=== PATIENT | female | born 1940 | race Caucasian/White ===

== ENCOUNTER → 2016-06-08 | Day surgery (SDC) | payer MEDICARE, OTHER ==
[~2016-06-08] VITALS: Ht 147.3 cm; Wt 69.4 kg
[~2016-06-08] MED LIST: ASPI-611 PO; CALC-603 PO; CYCL-375 PO; FLUO-88 PO; FURO20TA4 PO; HYDR-4072 PO; HYDR-4180 PO; LIDOCAINE 1% (10mg/ml) 2ml SDV INJ ONE; LIDOCAINE 1% (10mg/ml) 2ml SDV ONE; LIDOCAINE VISCOUS 2% Oral Soln 15ml UD ONE; LR 1,000 ML IV SCH; METO100T5 PO; MULT-684 PO; OMEP40CA52 PO; POTA20TA10 PO; PROPOFOL 500mg 50 ML IV ONE; RIVA20TA PO; VALS80TA26 PO
--- OUTSIDE RECORDS SUMMARY | 2016-06-08 08:18 | XMS REPORT | Referral Summary ---
Author Author [facility], Family [facility] Organization [facility] Address Unknown Phone Unavailable Care Team Providers Care Hospice Clinical Marketer Name Role Phone Kane Harley Primary Care Physician [phone] Encounter VC Date(s): 03/23/16 - 03/23/16 [facility], [address] [place] [address]- Discharge Diagnosis: Viral URI Discharge Diagnosis: Acute wheezy bronchitis Discharge Diagnosis: Cough Discharge Disposition: 01-Home or Self Care Attending Physician: Pierre Sanchez MD Admitting Physician: Pierre Sanchez MD Vital Signs Most recent to 1 oldest [Reference Range]: Peripheral Pulse 66 bpm Rate [60-100 bpm] (03/23/16 1:14 PM) Blood Pressure 142/72 mmHg [90-140/60-90 mmHg] *HI* (03/23/16 1:14 PM) SpO2 96 % (03/23/16 1:14 PM) Problem List Condition Effective Dates Status Health Status Informant Acute DVT (deep Active venous thrombosis)(Confirme d) Anemia Active (disorder)(Confirmed ) Anemia- Resolved pernicious(Confirmed ) Angina(Confirmed) Resolved Arthritis(Confirmed) Active Asthma(Confirmed) Resolved Benign essential Active hypertension (disorder)(Confirmed ) Cataract(Confirmed) Resolved Chronic pain Active syndrome(Confirmed) Degenerative disk Resolved disease - cervical(Confirmed) Depression(Confirmed Active ) DVT (deep venous 06/08/11 Resolved thrombosis) - and PE(Confirmed) Fistula, Resolved tracheoesophageal, stenosis(Confirmed) GERD Active (gastroesophageal reflux disease)(Confirmed) Personal history of Active DVT (deep vein thrombosis)(Confirme d) History of gastric Active ulcer(Confirmed) Hematuria syndrome Active (disorder)(Confirmed ) Hyperlipidemia(Confi Resolved rmed) Hypertension(Confirm Resolved ed) Insomnia(Confirmed) Resolved Obesity(Confirmed) Active patient Degenerative joint Active disease(Confirmed) Overweight(Confirmed Resolved ) Pedal Resolved edema(Confirmed) Pure Active hyperglyceridemia (disorder)(Confirmed ) Rheumatoid 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) Tobacco Resolved patient user(Confirmed) Ulcer(Confirmed) Resolved Allergies, Adverse Reactions, Alerts Substance Reaction Severity Status cyclobenzaprine hallucinaations Active sulfanilamide topical Hives/Skin Rash Active Medications albuterol CFC free 90 mcg/inh inhalation aerosol 2 puffs, Inhalation, q4hr, as needed for wheezing, # 8.5 g, 0 Refill(s), Pharmacy: [facility] #[id number] Start Date: 03/23/16 Status: Ordered Aspirin Low Dose 81 mg, Oral, Daily, 0 Refill(s) Start Date: 09/07/13 Status: Ordered Calcium 600+D 1 tabs, Oral, BID, 0 Refill(s) Start Date: 09/07/13 Status: Ordered FLUoxetine 20 mg oral capsule See Instructions, TAKE ONE CAPSULE BY MOUTH DAILY, # 90 caps, eRx: [facility] #[id number], TAKE ONE CAPSULE BY MOUTH DAILY Start Date: 02/02/16 Status: Ordered furosemide 20 mg oral tablet See Instructions, TAKE ONE TABLET BY MOUTH DAILY, # 60 tabs, 3 Refill(s), eRx: [facility] #[id number], TAKE ONE TABLET BY MOUTH DAILY Start Date: 09/13/15 Status: Ordered hydrALAZINE 25 mg oral tablet See Instructions, TAKE ONE TABLET BY MOUTH THREE TIMES A DAY, # 90 tabs, 1 Refill(s), eRx: [facility] #[id number] Start Date: 03/20/16 Status: Ordered HYDROcodone-acetaminophen 7.5 mg-325 mg oral tablet 1 tabs, Oral, TID, as needed for pain, # 90 tabs, 0 Refill(s) Start Date: 02/02/16 Stop Date: 03/03/16 Status: Ordered Klor-Con M20 oral tablet, extended release See Instructions, TAKE ONE TABLET BY MOUTH EVERY OTHER DAY, # 30 tabs, 3 Refill( s), eRx: [facility] #[id number], TAKE ONE TABLET BY MOUTH EVERY OTHER DAY Start Date: 10/18/15 Status: Ordered Metoprolol Tartrate 100 mg oral tablet See Instructions, TAKE ONE TABLET BY MOUTH TWICE A DAY, # 180 tabs, 3 Refill(s) , eRx: [facility] #[id number], TAKE ONE TABLET BY MOUTH TWICE A DAY Start Date: 07/19/15 Status: Ordered multivitamin Daily, 0 Refill(s) Start Date: 02/07/16 Status: Ordered omeprazole 40 mg oral delayed release capsule See Instructions, TAKE ONE CAPSULE BY MOUTH DAILY, # 30 caps, 4 Refill(s), Pharmacy: [facility] #[id number], TAKE ONE CAPSULE BY MOUTH DAILY Start Date: 03/22/16 Status: Ordered Tessalon Perles 100 mg oral capsule 100 mg 1 caps, Oral, TID, X 10 days, # 30 caps, 0 Refill(s), Pharmacy: [facility] #[id number], 1 caps Oral TID,x10 days Start Date: 03/23/16 Stop Date: 04/02/16 Status: Ordered valsartan 80 mg oral tablet See Instructions, TAKE ONE TABLET BY MOUTH DAILY, # 90 tabs, eRx: [facility] #[id number], TAKE ONE TABLET BY MOUTH DAILY Start Date: 02/20/16 Status: Ordered Xarelto 20 mg oral tablet See Instructions, TAKE ONE TABLET BY MOUTH EVERY EVENING, # 30 tabs, 5 Refill(s) , eRx: [facility] #[id number], TAKE ONE TABLET BY MOUTH EVERY EVENING Start Date: 11/14/15 Status: Ordered Results No data available for this section Immunizations Given and Recorded Vaccine Date Status Refusal Reason tetanus/diphth/pertuss (Tdap) adult/adol 07/09/14 Given influenza virus vaccine, inactivated 02/04/16 Recorded influenza virus vaccine, inactivated 02/24/15 Given influenza virus vaccine, live 05/04/13 Given Procedures Procedure Date Related Diagnosis Body Site Ambulatory Phlebectomy Left Leg 03/26/14 EVLT Left GSV 03/12/14 EVLT Left SSV 03/12/14 Colonoscopy and biopsy of colon1 09/17/13 Esophagogastroduodenoscopy and biopsy2 09/17/13 Cystoscopy 08/04/12 Mammogram 02/23/10 Esophagogastroduodenoscopy and dilation of 12/23/08 esophageal stricture3, 4 Cardiac catheterization5 2009 Knee replacement - right 2009 Bone densimetry normal 01/06/08 Cardiac catheterization6 2003 Vaginal Pap smear 01/29/02 Blood transfusion 1999 Adenoidectomy ILENE - Total abdominal hysterectomy Tonsillectomy 1Random biopsies, no evidence of colitis, repeat in 5 years due to family history of first-degree relative with colon cancer 2No evidence of Guzman's or malignancy, staying on PPI and follow-up as needed 3Schatzki's ring, gastritis 4Chronic gastritis, reflux esophagitis, H. pylori, esophageal strictures at 15 cm from incisions, distal esophagus/Schatzski ring 5Negative 6Negative Social History Social History Type Response Smoking Status Former smoker; Type: Cigarettes Assessment and Plan No data available for this section
--- OUTSIDE RECORDS SUMMARY | 2016-06-08 08:18 | XMS REPORT | Referral Summary ---
Author Author [facility], [facility] Organization [facility] Address Unknown Phone Unavailable Care Team Providers Care Mobile Security Architect Name Role Phone Kane Harley Primary Care Physician [phone] Encounter VC Date(s): 05/26/15 - 05/26/15 [facility], [address] [place] [address]- Discharge Diagnosis: Hypertension Discharge Diagnosis: Arthritis Discharge Diagnosis: Anemia (disorder) Discharge Disposition: 01-Home or Self Care Attending Physician: Danna Harley DO Admitting Physician: Danna Harley DO Vital Signs Most recent to 1 oldest [Reference Range]: Temperature Tympanic 36.9 degC [36.6-38.1 degC] (05/26/15 7:39 AM) Peripheral Pulse 66 bpm Rate [60-100 bpm] (05/26/15 7:39 AM) Respiratory Rate 17 br/min [14-20 br/min] (05/26/15 7:39 AM) Blood Pressure 128/60 mmHg [90-140/60-90 mmHg] (05/26/15 7:39 AM) SpO2 98 % (05/26/15 7:39 AM) Problem List Condition Effective Dates Status Health Status Informant Acute DVT (deep Active venous thrombosis)(Confirme d) Anemia Active (disorder)(Confirmed ) Anemia- Resolved pernicious(Confirmed ) Angina(Confirmed) Resolved Arthritis(Confirmed) Active Asthma(Confirmed) Resolved Benign essential Active hypertension (disorder)(Confirmed ) Cataract(Confirmed) Resolved Degenerative disk Resolved disease - cervical(Confirmed) Depression(Confirmed [...] Active sulfanilamide topical Hives/Skin Rash Active Medications Aspirin Low Dose 81 mg, Oral, Daily, 0 Refill(s) Start Date: 09/07/13 Status: Ordered Calcium 600+D 1 tabs, Oral, BID, 0 Refill(s) Start Date: 09/07/13 Status: Ordered Diovan 80 mg oral tablet 80 mg 1 tabs, Oral, Daily, # 90 tabs, 1 Refill(s), Pharmacy: [facility] # [id number], 1 tabs Oral Daily,x90 days Start Date: 05/19/15 Stop Date: 11/15/15 Status: Ordered furosemide 20 mg oral tablet 20 mg 1 tabs, Oral, Daily, # 60 tabs, 2 Refill(s), Pharmacy: [facility] # [id number], 1 tabs Oral Daily Start Date: 05/10/15 Status: Ordered hydrALAZINE 25 mg oral tablet See Instructions, TAKE ONE TABLET BY MOUTH THREE TIMES A DAY, # 90 tabs, 1 Refill(s), Pharmacy: [facility] #[id number], TAKE ONE TABLET BY MOUTH THREE TIMES A DAY Start Date: 03/28/15 Status: Ordered HYDROcodone-acetaminophen 7.5 mg-325 mg oral tablet 1 tabs, Oral, TID, as needed for pain, # 90 tabs, 0 Refill(s) Start Date: 04/29/15 Stop Date: 05/29/15 Status: Ordered Klor-Con M20 oral tablet, extended release 20 mEq 1 tabs, Oral, Every other day, # 30 tabs, 2 Refill(s), Pharmacy: [facility] #[id number], 1 tabs Oral Every other day Start Date: 03/24/15 Status: Ordered metoprolol tartrate 100 mg oral tablet 1 tabs, Oral, BID, # 180 tabs, 4 Refill(s), Pharmacy: [facility] #[id number] Start Date: 07/07/14 Status: Ordered omeprazole 40 mg oral delayed release capsule See Instructions, TAKE ONE CAPSULE BY MOUTH ONCE A DAY, # 30 caps, 11 Refill(s) , eRx: [facility] #[id number], TAKE ONE CAPSULE BY MOUTH ONCE A DAY Start Date: 10/04/14 Status: Ordered PROzac 20 mg oral capsule See Instructions, TAKE ONE CAPSULE BY MOUTH EVERY DAY, # 90 caps, eRx: [facility] #[id number], TAKE ONE CAPSULE BY MOUTH EVERY DAY Start Date: 02/15/15 Status: Ordered Xarelto 20 mg oral tablet 20 mg 1 tabs, Oral, qPM, # 30 tabs, 6 Refill(s), Pharmacy: [facility] # [id number], 1 tabs Oral qPM,x30 days Start Date: 04/19/15 Stop Date: 11/15/15 Status: Ordered zolpidem 10 mg oral tablet 10 mg 1 tabs, Oral, Bedtime (once a day), as needed for sleep, # 30 tabs, 3 Refill(s) Start Date: 02/24/15 Status: Ordered Results No data available for this section Immunizations Vaccine Date Refusal Reason tetanus/diphth/pertuss (Tdap) adult/adol 07/09/14 influenza virus vaccine, inactivated 02/24/15 influenza virus vaccine, live 05/04/13 Procedures Procedure Date Related Diagnosis Body Site Ambulatory Phlebectomy Left Leg 03/26/14 EVLT Left GSV 03/12/14 EVLT Left SSV 03/12/14 Colonoscopy and biopsy of colon1 09/17/13 Esophagogastroduodenoscopy and biopsy2 09/17/13 Cystoscopy 08/04/12 Esophagogastroduodenoscopy and dilation of 12/23/08 esophageal stricture3, 4 Cardiac catheterization5 2009 Knee replacement - right 2009 Cardiac catheterization6 2004 Blood transfusion 1999 Adenoidectomy ILENE - Total [...] Former smoker; Type: Cigarettes Assessment and Plan Extracted from: Title: Office Visit Note Author: Danna Harley DO Date: 05/26/15 Assessment/Plan Anemia (disorder) CBCin about a month. Further recommendations at that time. Ordered: Office Visit Level 4 Est 92949 Arthritis Doing well, return to clinic in 3 months for chronic pain visit. Ordered: Office Visit Level 4 Est 11000 Hypertension We will get a BMP at the time when she gets the CBC. She is due for this at this time. Otherwiseappears to be under good control. Ordered: Basic Metabolic Panel Office Visit Level 4 Est 85832 Orders: CBC w/ Differential
--- OUTSIDE RECORDS SUMMARY | 2016-06-08 08:18 | XMS REPORT | Referral Summary ---
Author Author [facility], [facility] Organization [facility] Address Unknown Phone Unavailable Care Team Providers Care Ext Js Developer Name Role Phone Kane Harley Primary Care Physician [phone] Encounter Date(s): 05/06/15 - 05/06/15 [facility], Urology [address] [place] [address] [place] [address]- Discharge Diagnosis: Essential hypertension Discharge Diagnosis: Kidney stone on left side Discharge Diagnosis: Kidney stone on left side Discharge Diagnosis: Hip osteoarthritis Discharge Disposition: 01-Home or Self Care Attending Physician: Mac Shin JR, MD Admitting Physician: Mac Shin JR, MD Vital Signs Most recent to 1 oldest [Reference Range]: Peripheral Pulse 78 bpm Rate [60-100 bpm] (05/06/15 3:25 PM) Blood Pressure 140/80 mmHg [90-140/60-90 mmHg] (05/06/15 3:25 PM) Problem List Condition Effective Dates Status [...] Status: Ordered Diovan 80 mg oral tablet 1 tabs, Oral, Daily, # 90 tabs, 3 Refill(s), 1 tabs Oral Daily,x90 days Start Date: 05/21/14 Stop Date: 05/16/15 Status: Ordered furosemide 20 mg oral tablet 20 mg 1 tabs, Oral, Daily, # 60 tabs, 2 Refill(s), eRx: [facility] #[id number] , TAKE ONE TABLET BY MOUTH TWICE A DAY Start Date: 09/06/14 Status: Ordered hydrALAZINE 25 mg oral tablet See Instructions, TAKE ONE TABLET BY MOUTH THREE TIMES A DAY, # 90 tabs, 1 Refill(s), Pharmacy: [facility] #[id number], TAKE ONE TABLET BY MOUTH THREE TIMES A DAY Start Date: 03/28/15 Status: Ordered HYDROcodone-acetaminophen 7.5 mg-325 mg oral tablet 1 tabs, Oral, TID, as needed for pain, # 90 tabs, 0 Refill(s) Start Date: 04/29/15 Stop Date: 05/29/15 Status: Ordered Klor-Con M20 oral tablet, extended release 20 mEq 1 tabs, Oral, Every other day, # 30 tabs, 2 Refill(s), Pharmacy: [facility] #[id number], 1 tabs Oral Every other day Start Date: 03/24/15 Status: Ordered metoprolol tartrate 100 mg oral tablet 1 tabs, Oral, BID, # 180 tabs, 4 Refill(s), Pharmacy: [facility] #[id number] Start Date: 07/07/14 Status: Ordered omeprazole 40 mg oral delayed release capsule See Instructions, TAKE ONE CAPSULE BY MOUTH ONCE A DAY, # 30 caps, 11 Refill(s) , eRx: [facility] #[id number], TAKE ONE CAPSULE BY MOUTH ONCE A DAY Start Date: 10/04/14 Status: Ordered PROzac 20 mg oral capsule See Instructions, TAKE ONE CAPSULE BY MOUTH EVERY DAY, # 90 caps, eRx: [facility] #[id number], TAKE ONE CAPSULE BY MOUTH EVERY DAY Start Date: 02/15/15 Status: Ordered Xarelto 20 mg oral tablet 20 mg 1 tabs, Oral, qPM, # 30 tabs, 6 Refill(s), Pharmacy: [facility] # [id number], 1 tabs Oral qPM,x30 days Start Date: [...] 09/17/13 Esophagogastroduodenoscopy and biopsy2 09/17/13 Cystoscopy 08/04/12 Colonoscopy3 12/23/08 Esophagogastroduodenoscopy and dilation of 12/23/08 esophageal stricture4, 5 Cardiac catheterization6 2009 Knee replacement - right 2009 Cardiac catheterization7 2004 Blood transfusion 1999 Colonoscopy8 1998 Adenoidectomy ILENE - Total abdominal hysterectomy Tonsillectomy 1Random biopsies, no evidence of colitis, repeat in 5 years due to family history of first-degree relative with colon cancer 2No evidence of Guzman's or malignancy, staying on PPI and follow-up as needed 3normal, FH colon cancer, repeat in 5 years 4Schatzki's ring, gastritis 5Chronic gastritis, reflux esophagitis, H. pylori, esophageal strictures at 15 cm from incisions, distal esophagus/Schatzski ring 6Negative 7Negative 8FH colon cancer Social History Social History Type Response Smoking Status Former smoker; Type: Cigarettes Assessment and Plan Extracted from: Title: Ambulatory Patient Education Author: Mac Shin JR, MD Date : 05/06/15 Follow Up With: Where: When: Danna Harley [address] [place] [address] [place] [address] Business (1) Within 3 to 5 days Comments: Follow Up With: Where: When: Mac Shin [address] [place] [address] Drive; [place] [facility] [place] [address] Business (1) In 6 months 11/04/2015 Comments: Extracted from: Title: Office Visit Note Author: Mac Shin JR, MD Date: 05/06/15 Assessment/Plan 1.Kidney stone on left side, Kidney stone on left side, Kidney stone on left side This kidney stone was seen on the CAT scan but I could not visualize this left kidney stone in the KUB x-ray. Patient'swill be recheck in my office in 6 months or sooner if needed. Get a KUB x-yomaira that day of the visit. Patient instructed to drink at least 8-10 glasses of liquids a day, reduce intake of caffeine, red meat nuts and too much salted food Patient has no symptoms. Ordered: Office Visit Level 4 New [address]07 2.Essential hypertension Continuemetoprololand Diovan. Continue [place] 3.Hip osteoarthritis Continue [place] 5 minute grams when necessary for back pain
--- OUTSIDE RECORDS SUMMARY | 2016-06-08 08:18 | XMS REPORT | Referral Summary ---
Author Organization Unknown Address Unknown Phone Unavailable Care Team Providers Care Internal Medicine Physician Assistant Name Role Phone Cameron Kirkland Primary Care Physician [phone] Encounter VC Date(s): 04/12/14 - 04/12/14 [facility], [address] [place] [address]- Discharge Diagnosis: Benign essential hypertension (disorder) Discharge Disposition: Home or Self Care Attending Physician: Walter Kirkland MD Admitting Physician: Walter Kirkland MD Vital Signs Most recent to 1 oldest [Reference Range]: Temperature Tympanic 36.2 degC [36.6-38.1 degC] *LOW* (04/12/14 9:40 AM) Peripheral Pulse 71 bpm Rate [60-100 bpm] (04/12/14 9:40 AM) Respiratory Rate 16 br/min [14-20 br/min] (04/12/14 9:40 AM) Blood Pressure 184/92 mmHg [90-140/60-90 mmHg] *HI* (04/12/14 9:40 AM) Most recent to 1 oldest [Reference Range]: SpO2 98 % (04/12/14 9:40 AM) Problem List Condition Effective Dates Status Health Status Informant Anemia- Resolved pernicious(Confirmed ) Anemia Active (disorder)(Confirmed ) Angina(Confirmed) Resolved Asthma(Confirmed) Resolved Benign essential Active hypertension (disorder)(Confirmed ) Cataract(Confirmed) Resolved Degenerative disk Resolved disease - cervical(Confirmed) DVT (deep venous 06/08/11 Resolved thrombosis) - and PE(Confirmed) Fistula, Resolved tracheoesophageal, 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 ) Hyperlipidemia(Confi Resolved rmed) Hypertension(Confirm Resolved ed) Insomnia(Confirmed) Resolved Obesity(Confirmed) Active patient Overweight(Confirmed Resolved ) Pedal Resolved edema(Confirmed) Pure Active hyperglyceridemia (disorder)(Confirmed ) Rheumatoid 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) Ulcer(Confirmed) Resolved Allergies, Adverse Reactions, Alerts Substance Reaction Severity Status sulfanilamide topical Hives/Skin Rash Active Medications Aspirin Low Dose 81 mg, Oral, Daily, 0 Refill(s) Start Date: 09/07/13 Status: Ordered Calcium 600+D 1 tabs, Oral, Daily, 0 Refill(s) Start Date: 09/07/13 Status: Ordered Cartia XT 240 mg/24 hours oral capsule, extended release 1 caps, Oral, Daily, # 30 caps, 6 Refill(s), Pharmacy: [facility] #[id number] , 1 caps Oral Daily Start Date: 04/12/14 Status: Ordered furosemide 20 mg oral tablet See Instructions, TAKE ONE TABLET BY MOUTH TWICE A DAY, # 60 tabs, 5 Refill(s), eRx: [facility] #[id number], TAKE ONE TABLET BY MOUTH TWICE A DAY Special Instructions: TAKE ONE TABLET BY MOUTH TWICE A DAY Start Date: 11/10/13 Status: Ordered HYDROcodone-acetaminophen 7.5 mg-325 mg oral tablet 1 tabs, Oral, TID, as needed for pain, # 60 tabs, 0 Refill(s) Start Date: 03/29/14 Stop Date: 04/28/14 Status: Ordered Klor-Con M20 oral tablet, extended release See Instructions, TAKE ONE TABLET BY MOUTH EVERY DAY, # 30 tabs, 1 Refill(s), eRx: [facility] #[id number], TAKE ONE TABLET BY MOUTH EVERY DAY Special Instructions: TAKE ONE TABLET BY MOUTH EVERY DAY Start Date: 03/15/14 Status: Ordered Metoprolol Tartrate 50 mg oral tablet See Instructions, TAKE ONE TABLET BY MOUTH TWICE A DAY, # 60 tabs, 5 Refill(s), eRx: [facility] #[id number], TAKE ONE TABLET BY MOUTH TWICE A DAY Special Instructions: TAKE ONE TABLET BY MOUTH TWICE A DAY Start Date: 12/09/13 Status: Ordered niacin 1,500 mg, Oral, Bedtime (once a day), 0 Refill(s) Start Date: 09/07/13 Status: Ordered omeprazole 20 mg oral delayed release tablet 1 tabs, Oral, BID, # 60 tabs, 0 Refill(s), Pharmacy: [facility] #[id number], 1 tabs Oral BID Start Date: 09/08/13 Status: Ordered PROzac 20 mg oral capsule See Instructions, TAKE ONE CAPSULE BY MOUTH EVERY DAY, # 90 caps, 2 Refill(s), eRx: [facility] #[id number], TAKE ONE CAPSULE BY MOUTH EVERY DAY Special Instructions: TAKE ONE CAPSULE BY MOUTH EVERY DAY Start Date: 01/26/14 Status: Ordered zolpidem 10 mg oral tablet 1 tabs, Oral, Bedtime (once a day), as needed for sleep, # 30 tabs, 0 Refill(s) Start Date: 04/07/14 Status: Ordered Results No data available for this section Immunizations Vaccine Date Refusal Reason influenza virus vaccine, live 05/04/13 Procedures Procedure Date Related Diagnosis Body Site Ambulatory Phlebectomy Left Leg 03/26/14 EVLT Left GSV 03/12/14 EVLT Left SSV 03/12/14 Colonoscopy and biopsy of colon1 09/17/13 Esophagogastroduodenoscopy and biopsy2 09/17/13 Cystoscopy 08/04/12 Colonoscopy3 12/23/08 Esophagogastroduodenoscopy and dilation of 12/23/08 esophageal stricture4, 5 Cardiac catheterization6 2009 Knee replacement - right 2009 Cardiac catheterization7 2003 Blood transfusion 1999 Colonoscopy8 1998 Adenoidectomy ILENE [...] Social History Type Response Smoking Status Former smoker Assessment and Plan Extracted from: Title: Office Visit Note Author: Walter Kirkland MD Date: 04/12/14 Assessment/Plan Benign essential hypertension (disorder) I'm increasing your diltiazem 240 mg a day. I want to see back in one week. Continue to monitor blood pressures once to twice a day. Bring me a copy of your blood pressures. Continue other blood pressure medications. I am checking a bilateral renal ultrasound. I ordered that and after I ordered it in the order sectioned it appeared as ultrasound of the aorta. I was informed that it still med a bilateral renal ultrasound. I will notify you of the results. Orders: diltiazem, 1 caps, Oral, Daily, # 30 caps, 6 Refill(s), Pharmacy: [facility] #[id number], 1 caps Oral Daily US Aorta Complete
--- OUTSIDE RECORDS SUMMARY | 2016-06-08 08:18 | XMS REPORT | Continuity of Care Document ---
Author Author [facility] Organization [facility] Address Unknown Phone Unavailable Support Name Relationship Address Phone ISMAEL HUMPHREY MD Caregiver [address] [place] [address] [place] [phone] DAO FATIMA FACS, MD Caregiver [address] [place] [address] [address] [place] [phone] TAYE ARAGON Next Of Kin [address] [place] [address] Insurance Providers Payer Name Policy Number Subscriber Name Relationship Medicare [id number] Lida Aldana 18 Self Other A Insurance [id number] Lida Aldana 18 Self Advance Directives Directive Response Recorded Date/Time Advanced Directives Type Living Will DPOA for Healthcare 09/16/13 11:47am Ordered Resuscitation Status Full Code 09/16/13 2:51pm Resuscitation Documents on File No 09/16/13 11:47am Problems Medical Problems Problem Onset Date Status Left lower quadrant pain Unknown Active Epigastric pain Unknown Active Rectal bleed Unknown Active Left lower quadrant pain Unknown Active Medications Medication Dose Route Sig Days/Qty Instructions Order Date Discontinued Date Status Calcium 500 Mg PO TWICE A DAY 08/24/09 07/31/12 Discontinued Multivitamins W-Iron 1 Tab PO DAILY 08/24/09 07/31/12 Discontinued Simvastatin 20 Mg PO DAILY 08/24/09 06/07/11 Discontinued Spironolactone 25 Mg PO DAILY 08/24/09 07/31/12 Discontinued Metoprolol Tartrate 50 Mg PO TWICE A DAY 08/24/09 Active Valsartan/Hydrochlorothiazide 1 Tab PO DAILY 08/24/09 07/31/12 Discontinued Fluoxetine HCl 20 Mg PO DAILY 08/24/09 Active Hydrocodone Bit/Acetaminophen 1 Tab PO BEDTIME this is taken prn Active Ipratropium/Albuterol Sulfate 14.7 Gm IH FOUR TIMES DAILY 08/24/09 06/07/11 Discontinued Albuterol Sulfate 1.25 Mg IH NEEDED 08/24/09 06/07/11 Discontinued Albuterol Sulfate 18 Gm IH NEEDED 08/24/09 06/07/11 Discontinued Aspirin 81 Mg PO DAILY 08/24/09 07/31/12 Discontinued Niacin (Inositol Niacinate) 500 Mg PO DAILY 07/31/12 Active Calcium 500 Mg PO DAILY 07/31/12 Active Zolpidem Tartrate 5 Mg PO NEEDED 07/31/12 Active Aspirin 81 Mg PO DAILY 08/04/12 Active Omeprazole 20 Mg PO BEFORE MEALS 09/01/13 Active Mesalamine 1,600 Mg PO THREE TIMES A DAY 09/16/13 Active Social History Social History Problem Response Recorded Date/Time Smoking Status Former smoker 09/16/2013 11:47am Chewing Tobacco Status No 09/16/2013 11:47am Hx Substance Use No 09/16/2013 11:47am Hx Alcohol Use Y VERY RARELY 09/16/2013 11:47am Has the pt used tobacco in the last 12 months No 09/16/2013 11:47am Query Response Start Date Stop Date Smoking Status Former smoker Hospital Discharge Instructions No hospital discharge instructions. Plan of Care No plan of care. Functional Status No functional status results. Allergies, Adverse Reactions, Alerts Allergen Type Severity Reaction Status Last Updated Sulfa (Sulfonamide Antibiotics) Allergy Mild itch and rash Active 09/01/13 Immunizations Name Given Type Hx Influenza Vaccination Y FALL 2012 Historical Hx Pneumococcal Vaccination Y LAST YEAR Historical Hx Influenza Vaccination Y FALL 2012 Historical Vital Signs Acute Vital Signs Vital Response Date/Time Temperature (Fahrenheit) 96.8 deg F (96.8 - 99.1) Temperature (Calculated Celsius) 36.76039 degrees C (36.0 - 37.3) Temperature Source Temporal Pulse Rate (adult) 74 bpm (60 - 100) Respiratory Rate 14 breaths/min (10 - 20) O2 Sat by Pulse Oximetry 96 % (90 - 100) Blood Pressure 145/66 mm Hg Blood Pressure Source Automatic Cuff Height 4 ft 11 in Weight 153 lb Body Mass Index 30.0 kg/m^2 Results Test Source Date Result Interp. Ref. Range Comments Activated Partial Thromboplast Time September 01, 2013 8:50am 26.9 SEC N 24- 36 Alanine Aminotransferase (ALT/SGPT) September 01, 2013 8:50am 18 U/L N 9-52 Albumin September 01, 2013 8:50am 4.3 G/DL N 3.5-5.0 Albumin/Globulin Ratio September 01, 2013 8:50am 1.4 RATIO N 1.1-2.2 Alkaline Phosphatase September 01, 2013 8:50am 100 U/L N 38-126 Amylase Level August 14, 2013 9:55am 75 U/L N 30-110 Anion Gap September 01, 2013 8:50am 17 MEQ/L H 5-15 Arterial Blood Base Excess April 03, 2008 1:30pm 5.6 MMOL/L H -2.0- 2.0 Is the patient on room air? YWhat is the Source? (Liters or Percent) ROOM AIR Arterial Blood HCO3 April 03, 2008 1:30pm 30 MEQ/L H 22-26 Is the patient on room air? YWhat is the Source? (Liters or Percent) ROOM AIR Arterial Blood Oxygen Content April 03, 2008 1:30pm Not Performed - Arterial Blood Partial Pressure CO2 April 03, 2008 1:30pm 41 MMHG N 34 -45 Is the patient on room air? YWhat is the Source? (Liters or Percent) ROOM AIR Arterial Blood Total CO2 April 03, 2008 1:30pm 31.1 MEQ/L H 23-27 Is the patient on room air? YWhat is the Source? (Liters or Percent) ROOM AIR Arterial Blood pH April 03, 2008 1:30pm 7.470 H 7.350-7.450 Is the patient on room air? YWhat is the Source? (Liters or Percent) ROOM AIR Aspartate Amino Transf (AST/SGOT) September 01, 2013 8:50am 26 U/L N 14-36 B-Type Natriuretic Peptide April 04, 2008 5:55am 225 PG/ML H 15-100 BUN/Creatinine Ratio September 01, 2013 8:50am 27 RATIO H 6-26 Basophils # (Auto) September 01, 2013 8:50am 0.0 T/MM3 N 0-0.2 Basophils (%) (Auto) September 01, 2013 8:50am 0.1 % N 0-2 Blood Gas Oxygen Saturation April 03, 2008 1:30pm 94.0 % L 95.0-98.0 Is the patient on room air? YWhat is the Source? (Liters or Percent) ROOM AIR Blood Gas Tidal Volume April 03, 2008 1:30pm Not Performed 0-1200 Blood Gas Vent Rate April 03, 2008 1:30pm Not Performed 0-30 Blood Urea Nitrogen September 01, 2013 8:50am 40.0 MG/DL H 7-17 Calcium Level September 01, 2013 8:50am 10.2 MG/DL N 8.4-10.2 Calculated Osmolality September 01, 2013 8:50am 280 MOSM/KG N 261-280 Carbon Dioxide Level September 01, 2013 8:50am 19 MEQ/L L 22-30 Chloride Level September 01, 2013 8:50am 103 MEQ/L N 98-107 Cholesterol Level October 06, 2008 9:23am 208 MG/DL H 132-199 Cholesterol/HDL Ratio October 06, 2008 9:23am 4.0 RATIO N 0-4.0 Creatine Kinase MB October 06, 2008 9:23am 0.0 NG/ML N 0-3.4 Creatinine September 01, 2013 8:50am 1.5 MG/DL H 0.7-1.2 Eosinophils # (Auto) September 01, 2013 8:50am 0.0 T/MM3 N 0-0.5 Eosinophils (%) (Auto) September 01, 2013 8:50am 0.3 % N 0-4 Erythrocyte Sedimentation Rate June 09, 2011 5:23am 30 MM/HR H 0-20 COMMENT DO ON BLOOD ALREADY IN THE LAB Ferritin June 09, 2011 5:23am 125 NG/ML N 11-264 COMMENT DO ON BLOOD ALREADY IN THE LABCOMMENT DO ON BLOOD ALREADY IN LAB Folate June 09, 2011 5:23am 20.0 NG/ML N 2.76-20 NORMAL ADULT RANGE: 2.76->20 ng/mL Globulin September 01, 2013 8:50am 3.0 G/DL N 2.4-3.6 Glucose Level September 01, 2013 8:50am 132 MG/DL H 65-110 Hematocrit September 01, 2013 8:50am 40.2 % N 36-46 Hemoglobin September 01, 2013 8:50am 13.5 GM/DL N 12-16 Iron Level June 09, 2011 5:23am 49 UG/DL N 37-170 COMMENT DO ON BLOOD ALREADY IN THE LABCOMMENT DO ON BLOOD ALREADY IN LAB LDL Cholesterol, Calculated October 06, 2008 9:23am 101.4 N 66-159 Lipase September 01, 2013 8:50am 175 U/L N 23-300 Lymphocytes # (Auto) September 01, 2013 8:50am 1.4 T/MM3 N 1-4.8 Lymphocytes (%) (Auto) September 01, 2013 8:50am 9.9 % L 23-45 Mean Corpuscular Hemoglobin September 01, 2013 8:50am 34.0 UUG N 26-34 Mean Corpuscular Hemoglobin Concent September 01, 2013 8:50am 33.6 GM/DL N 31 -37 Mean Corpuscular Volume September 01, 2013 8:50am 101.3 UM3 H 80-100 Mean Platelet Volume September 01, 2013 8:50am 10.2 UM3 N 9.4-12.4 Monocytes # (Auto) September 01, 2013 8:50am 0.9 T/MM3 H 0-0.8 Monocytes (%) (Auto) September 01, 2013 8:50am 5.9 % N 0-9.0 Neutrophils # (Auto) September 01, 2013 8:50am 12.1 T/MM3 H 1.8-7.7 Neutrophils (%) (Auto) September 01, 2013 8:50am 83.6 % H 33-66 Platelet Count September 01, 2013 8:50am 292 T/MM3 N 130-400 Potassium Level September 01, 2013 8:50am 4.7 MEQ/L N 3.6-5 Prothromb Time International Ratio September 01, 2013 8:50am 0.90 N 0.81- 1.09 THERAPUTIC RANGE=2.00-3.00 FOR ANTI-THROMBOSIS THERAPUTIC RANGE=2.50- 3.50 FOR IMPLANTED VALVE RDW Standard Deviation September 01, 2013 8:50am 45.7 FL N 36.9-50.2 Red Blood Count September 01, 2013 8:50am 3.97 M/MM3 L 4.00-5.20 Sodium Level September 01, 2013 8:50am 139 MEQ/L N 134-144 Tests Not Done March 30, 2008 8:40am Not done - Has specimen been collected/obtained? Y Total Bilirubin September 01, 2013 8:50am 0.50 MG/DL N 0.20-1.30 Total Protein September 01, 2013 8:50am 7.3 G/DL N 6.3-8.2 Triglycerides Level October 06, 2008 9:23am 318 MG/DL H 35-135 Troponin I September 01, 2013 8:50am < 0.012 ng/ml 0-0.12 Urine Bilirubin September 01, 2013 11:10am Negative - Has specimen been collected/obtained? Y Urine Blood September 01, 2013 11:10am Trace-intact H - Has specimen been collected/obtained? Y Urine Collection Type September 01, 2013 11:10am Voided-not cc-midstr - Has specimen been collected/obtained? Y Urine Color September 01, 2013 11:10am Yellow - Has specimen been collected/obtained? Y Urine Glucose (UA) September 01, 2013 11:10am Negative - Has specimen been collected/obtained? Y Urine Ketones September 01, 2013 11:10am Negative - Has specimen been collected/obtained? Y Urine Leukocyte Esterase September 01, 2013 11:10am Negative - Has specimen been collected/obtained? Y Urine Nitrite September 01, 2013 11:10am Negative - Has specimen been collected/obtained? Y Urine Protein September 01, 2013 11:10am Negative - Has specimen been collected/obtained? Y Urine RBC March 30, 2008 8:40am Not Performed - Urine Specific [place] September 01, 2013 11:10am <=1.005 L - Has specimen been collected/obtained? Y Urine Turbidity September 01, 2013 11:10am Clear - Has specimen been collected/obtained? Y Urine Urobilinogen September 01, 2013 11:10am 0.2 EU/DL - Has specimen been collected/obtained? Y Urine WBC March 30, 2008 8:40am Not Performed - Urine pH September 01, 2013 11:10am 6.0 - Has specimen been collected/ obtained? Y VLDL Cholesterol October 06, 2008 9:23am 63.6 MG/DL H 0-28 Vitamin B12 Level June 09, 2011 5:23am > 1000 PG/ML H 239-931 COMMENT DO ON BLOOD ALREADY IN THE LABCOMMENT DO ON BLOOD ALREADY IN LAB White Blood Count September 01, 2013 8:50am 14.4 T/MM3 H 4.5-11.0 Chemistry Specimen Hemolysis September 01, 2013 8:50am < 15 0-25 0-25: No Hemolysis.26-70: Slight Hemolysis - can falsely elevate K and Urine Protein. 71-285: Moderate Hemolysis - can falsely elevate K, Troponin I, CA 19-9, PTH, CSF GLucose, and Urine Protein, and can falsely decrease Phenytoin. 286-999: Gross Hemolysis - can falsely elevate K, Troponin I, CA 19-9, PTH, CSF Glucose, and Urine Protine, and can falsely decrease Phenytoin. Recommend specimen recollection. Oxygen Delivery Method (LAB) April 03, 2008 1:30pm Room air - Is the patient on room air? YWhat is the Source? (Liters or Percent) ROOM AIR Urinalysis Comment September 01, 2013 11:10am Microscopic not ind. - Has specimen been collected/obtained? Y Glucometer September 17, 2013 7:27am 99 mg/dL N 65-110 Lab Scanned Report August 14, 2013 10:54am LAB TEST FORM REQUEST [id number] - HDL Cholesterol Direct October 06, 2008 9:23am 43 MG/DL N 40-60 Turbidity September 01, 2013 8:50am < 20 0-20 Glomerular Filtration Rate Calc September 01, 2013 8:50am 34 - Immature Granulocyte # (Auto) September 01, 2013 8:50am 0.03 T/MM3 N 0.00- 0.03 Immature Granulocyte % (Auto) September 01, 2013 8:50am 0.2 % N 0.0-0.5 Arterial Blood pO2 at Patient Temp April 03, 2008 1:30pm 66 MMHG L 80- 100 Is the patient on room air? YWhat is the Source? (Liters or Percent) ROOM AIR Icterus Index September 01, 2013 8:50am < 2 0-7 Helicobacter pylori Rapid Urease Gastric Biopsy September 17, 2013 8:28am Procedures Procedure Status Date Provider(s) THER/PROPH/DIAG INJ IV PUSH completed 09/01/13 TX/PRO/DX INJ NEW DRUG ADDON completed 09/01/13 TX/PRO/DX INJ NEW DRUG ADDON completed 09/01/13 EGD BIOPSY SINGLE/MULTIPLE completed 09/17/13 DAO FATIMA MD, FACS, CWS COLONOSCOPY AND BIOPSY completed 09/17/13 DAO FATIMA MD, FACS, CWS Encounters Encounter Location Date/Time Departed Emergency Room [facility] 09/01/13 8:21am Registered [facility] 08/14/13 10:04am Registered [facility] 07/31/13 10:40am
--- OUTSIDE RECORDS SUMMARY | 2016-06-08 08:18 | XMS REPORT | Referral Summary ---
Author Author [facility] Organization [facility] Address Unknown Phone Unavailable Care Team Providers Care Home Care Manager Rn Name Role Phone Kane Harley Primary Care Physician [phone] Encounter VC Date(s): 10/27/14 - 10/27/14 [facility] [address] [place] [address] [place] [id number]- Discharge Diagnosis: Hypercholesteremia Discharge Diagnosis: Coronary heart disease Discharge Diagnosis: History of DVT (deep vein thrombosis) Discharge Diagnosis: Essential hypertension Discharge Diagnosis: Statin intolerance Discharge Diagnosis: Essential hypertension Discharge Diagnosis: Hypercholesteremia Discharge Diagnosis: Statin intolerance Discharge Diagnosis: Coronary heart disease Discharge Diagnosis: History of DVT (deep vein thrombosis) Discharge Disposition: 01-Home or Self Care Attending Physician: Nicanor Carlson MD Admitting Physician: Nicanor Carlson MD Referring Physician: Walter Kirkland MD Vital Signs Most recent to 1 oldest [Reference Range]: Peripheral Pulse 68 bpm Rate [60-100 bpm] (10/27/14 1:16 PM) Blood Pressure 110/70 mmHg [90-140/60-90 mmHg] (10/27/14 1:16 PM) Problem List Condition Effective Dates Status [...] Daily, # 60 tabs, 2 Refill(s), eRx: [facility] #[id number] , TAKE ONE TABLET BY MOUTH TWICE A DAY Start Date: 09/06/14 Status: Ordered hydrALAZINE 25 mg oral tablet See Instructions, TAKE ONE TABLET BY MOUTH THREE TIMES A DAY, # 90 tabs, 1 Refill(s), Pharmacy: [facility] #[id number], TAKE ONE TABLET BY MOUTH THREE TIMES A DAY Start Date: 03/28/15 Status: Ordered HYDROcodone-acetaminophen 7.5 mg-325 mg oral tablet 1 tabs, Oral, TID, as needed for pain, # 90 tabs, 0 Refill(s) Start Date: 04/29/15 Stop Date: 05/29/15 Status: Ordered Klor-Con M20 oral tablet, extended release 20 mEq 1 tabs, Oral, Every other day, # 30 tabs, 2 Refill(s), Pharmacy: [facility] #[id number], 1 tabs Oral Every other day Start Date: 03/24/15 Status: Ordered metoprolol tartrate 100 mg oral tablet 1 tabs, Oral, BID, # 180 tabs, 4 Refill(s), Pharmacy: [facility] #[id number] Start Date: 07/07/14 Status: Ordered omeprazole 40 mg oral delayed release capsule See Instructions, TAKE ONE CAPSULE BY MOUTH ONCE A DAY, # 30 caps, 11 Refill(s) , eRx: [facility] #[id number], TAKE ONE CAPSULE BY MOUTH ONCE A DAY Start Date: 10/04/14 Status: Ordered PROzac 20 mg oral capsule See Instructions, TAKE ONE CAPSULE BY MOUTH EVERY DAY, # 90 caps, eRx: [facility] #[id number], TAKE ONE CAPSULE BY MOUTH EVERY DAY Start Date: 02/15/15 Status: Ordered Xarelto 20 mg oral tablet 20 mg 1 tabs, Oral, qPM, # 30 tabs, 6 Refill(s), Pharmacy: [facility] # [id number], 1 tabs Oral qPM,x30 days Start Date: [...] Extracted from: Title: Office Visit Note Author: Nicanor Carlson MD Date: 10/27/14 Assessment/Plan 1.Essential hypertension 3.Hypercholesteremia 4.Statin intolerance 5.Coronary heart disease 6.History of DVT (deep vein thrombosis) Discussion: Overall, this lady seems to be much more stable. I didn't make any changes in her therapy. I advised her to continue on with her medication program and to let us know if she has any adverse symptoms. She is to see us again in 6-12 months or any time as necessary. Orders: furosemide, 20 mg 1 tabs, Oral, Daily, # 60 tabs, 2 Refill(s), eRx: [facility] #[id number], TAKE ONE TABLET BY MOUTH TWICE A DAY potassium chloride, 20 mEq 1 tabs, Oral, Every other day, # 30 tabs, 2 Refill( s), eRx: [facility] #[id number], TAKE ONE TABLET BY MOUTH DAILY
--- OUTSIDE RECORDS SUMMARY | 2016-06-08 08:18 | XMS REPORT | Referral Summary ---
Author Organization Unknown Address Unknown Phone Unavailable Care Team Providers Care Machined Parts Quality Inspector Name Role Phone Cameron Kirkland Primary Care Physician [phone] Encounter VC Date(s): 07/07/14 - 07/07/14 [facility] [address] [place] [id number]- Discharge Diagnosis: Need for Tdap vaccination Discharge Diagnosis: Benign essential hypertension (disorder) Discharge Diagnosis: DVT (deep venous thrombosis) - and PE Discharge Disposition: Home or Self Care Attending Physician: Walter Kirkland MD Admitting Physician: Walter Kirkland MD Vital Signs Most recent to 1 oldest [Reference Range]: Temperature Oral 36.8 degC [35.8-37.3 degC] (07/07/14 1:04 PM) Peripheral Pulse 64 bpm Rate [60-100 bpm] (07/07/14 1:04 PM) Respiratory Rate 16 br/min [14-20 br/min] (07/07/14 1:04 PM) Blood Pressure 160/82 mmHg [90-140/60-90 mmHg] *HI* (07/07/14 1:04 PM) Problem List Condition Effective Dates Status Health Status Informant Acute DVT (deep Active venous thrombosis)(Confirme d) Anemia- Resolved pernicious(Confirmed ) Anemia Active (disorder)(Confirmed [...] 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) Tobacco Active patient user(Confirmed) Ulcer(Confirmed) Resolved Allergies, Adverse Reactions, [...] Status: Ordered furosemide 20 mg oral tablet 1 tabs, Oral, Daily, # 60 tabs, 5 Refill(s), eRx: [facility] #[id number], TAKE ONE TABLET BY MOUTH TWICE A DAY Start Date: 11/10/13 Status: Ordered hydrALAZINE 25 mg oral tablet 1 tabs, Oral, TID, # 90 tabs, 6 Refill(s), Pharmacy: [facility] #[id number], 1 tabs Oral TID,x30 days Start Date: 06/18/14 Stop Date: 01/14/15 Status: Ordered HYDROcodone-acetaminophen 7.5 mg-325 mg oral tablet 1 tabs, Oral, TID, as needed for pain, # 90 tabs, 0 Refill(s) Start Date: 06/18/14 Stop Date: 07/18/14 Status: Ordered Klor-Con M20 oral tablet, extended release 1 tabs, Oral, Every other day, # 30 tabs, eRx: [facility] #[id number], TAKE ONE TABLET BY MOUTH DAILY Start Date: 07/05/14 Status: Ordered metoprolol tartrate 100 mg oral tablet 1 tabs, Oral, BID, # 180 tabs, 4 Refill(s), Pharmacy: [facility] #[id number] Start Date: 07/07/14 Status: Ordered Metoprolol Tartrate 50 mg oral tablet See Instructions, TAKE ONE TABLET BY MOUTH TWICE A DAY, # 60 tabs, 4 Refill(s), eRx: [facility] #[id number], TAKE ONE TABLET BY MOUTH TWICE A DAY Special Instructions: TAKE ONE TABLET BY MOUTH TWICE A DAY Start Date: 06/08/14 Status: Ordered omeprazole 40 mg oral delayed release capsule See Instructions, TAKE ONE CAPSULE BY MOUTH ONCE A DAY, # 30 caps, 4 Refill(s), eRx: [facility] #[id number], TAKE ONE CAPSULE BY MOUTH ONCE A DAY Special Instructions: TAKE ONE CAPSULE BY MOUTH ONCE A DAY Start Date: 04/29/14 Status: Ordered PROzac 20 mg oral capsule See Instructions, TAKE ONE CAPSULE BY MOUTH EVERY DAY, # 90 caps, 2 Refill(s), eRx: [facility] #[id number], TAKE ONE CAPSULE BY MOUTH EVERY DAY Special Instructions: TAKE ONE CAPSULE BY MOUTH EVERY DAY Start Date: 01/26/14 Status: Ordered Xarelto 15 mg oral tablet 1 tabs, Oral, BID, # 30 tabs, 0 Refill(s) Start Date: 06/25/14 Stop Date: 07/16/14 Status: Ordered zolpidem 10 mg oral tablet 1 tabs, Oral, Bedtime (once a day), as needed for sleep, # 30 tabs, 0 Refill(s) Start Date: 06/21/14 Status: Ordered Results No data available for [...] Visit Note Author: Walter Kirkland MD Date: 07/07/14 Assessment/Plan Benign essential hypertension (disorder) DVT (deep venous thrombosis) - and PE Need for Tdap vaccination Plan: We'll give you a Tdap. Continue current medications for now. I gave you more samples of xerolto. We discussed treatment with xerolto versus Coumadin. Follow-up in one month.
--- OUTSIDE RECORDS SUMMARY | 2016-06-08 08:18 | XMS REPORT | Referral Summary ---
Author Organization Unknown Address Unknown Phone Unavailable Care Team Providers Care Air Brake Man Name Role Phone Cameron Kirkland Primary Care Physician [phone] Encounter VC Date(s): 04/16/14 - 04/16/14 [facility], Zenon Sullivan, Plastic Surgery [address] [place], [place] [address] Discharge Diagnosis: Chronic venous hypertension involving left side Discharge Disposition: Home or Self Care Attending Physician: Triston Rader MD Admitting Physician: Triston Rader MD Referring Physician: Walter Kirkland MD Vital Signs Most recent to 1 oldest [Reference Range]: Blood Pressure 178/86 mmHg [90-140/60-90 mmHg] *HI* (04/16/14 3:26 PM) Problem List Condition Effective Dates Status [...] Daily, # 30 caps, 6 Refill(s), Pharmacy: [facility] #[id number] , 1 caps Oral Daily Start Date: 04/12/14 Status: Ordered furosemide 20 mg oral tablet See Instructions, TAKE ONE TABLET BY MOUTH TWICE A DAY, # 60 tabs, 5 Refill(s), eRx: [facility] #[id number], TAKE ONE TABLET BY MOUTH TWICE A [...] DAY, # 30 tabs, 1 Refill(s), eRx: [facility] #[id number], TAKE ONE TABLET BY MOUTH EVERY DAY Special Instructions: TAKE ONE TABLET BY MOUTH EVERY DAY Start Date: 03/15/14 Status: Ordered Metoprolol Tartrate 50 mg oral tablet See Instructions, TAKE ONE TABLET BY MOUTH TWICE A DAY, # 60 tabs, 5 Refill(s), eRx: [facility] #[id number], TAKE ONE TABLET BY MOUTH TWICE A DAY Special Instructions: TAKE ONE TABLET BY MOUTH TWICE A DAY Start Date: 12/09/13 Status: Ordered niacin 1,500 mg, Oral, Bedtime (once a day), 0 Refill(s) Start Date: 09/07/13 Status: Ordered omeprazole 20 mg oral delayed release tablet 1 tabs, Oral, BID, # 60 tabs, 0 Refill(s), Pharmacy: [facility] #[id number], 1 tabs Oral BID Start Date: 09/08/13 Status: Ordered PROzac 20 mg oral capsule See Instructions, TAKE ONE CAPSULE BY MOUTH EVERY DAY, # 90 caps, 2 Refill(s), eRx: [facility] #[id number], TAKE ONE CAPSULE BY MOUTH EVERY DAY [...] 2009 Cardiac catheterization7 2003 Blood transfusion 1999 Colonoscopy1998 Adenoidectomy ILENE - Total abdominal hysterectomy Tonsillectomy [...] smoker Assessment and Plan Extracted from: Title: Ambulatory Patient Education Author: Triston Rader MD Date: 04/16 Family Medicine Venous Stasis and Chronic Venous Insufficiency As people age, the veins located in their legs may weaken and stretch. When veins weaken and lose the ability to pump blood effectively, the condition is called chronic venous insufficiency (CVI) or venous stasis . Almost all veins return blood back to the heart. This happens by: The force of the heart pumping fresh blood pushes blood back to the heart. Blood flowing to the heart from the force of gravity. In the deep veins of the legs, blood has to fight gravity and flow upstream back to the heart. Here, the leg muscles contract to pump blood back toward the heart. Vein ervin are elastic, and many veins have small valves that only allow blood to flow in one direction. When leg muscles contract, they push inward against the elastic vein ervin. This squeezes blood upward, opens the valves, and moves blood toward the heart. When leg muscles relax, the vein wall also relaxes and the valves inside the vein close to prevent blood from flowing backward. This method of pumping blood out of the legs is called the venous pump . CAUSES The venous pump works best while walking and leg muscles are sheng. But when a person sits or stands, blood pressure in leg veins can build. Deep veins are usually able to withstand short periods of inactivity, but long periods of inactivity (and increased pressure) can stretch, weaken, and damage vein ervin. High blood pressure can also stretch and damage vein ervin. The veins may no longer be able to pump blood back to the heart. Venous hypertension (high blood pressure inside veins) that lasts over time is a primary cause of CVI. CVI can also be caused by: Deep vein thrombosis , a condition where a thrombus (blood clot) blocks blood flow in a vein. Phlebitis , an inflammation of a superficial vein that causes a blood clot to form. Other risk factors for CVI may include: Heredity. Obesity. . Sedentary lifestyle. Smoking. Jobs requiring long periods of standing or sitting in one place. Age and gender: Women in their 40's and 50's and men in their 70's are more prone to developing CVI. SYMPTOMS Symptoms of CVI may include: Varicose veins. Ulceration or skin breakdown. Lipodermatosclerosis , a condition that affects the skin just above the ankle, usually on the inside surface. Over time the skin becomes brown, smooth , tight and often painful. Those with this condition have a high risk of developing skin ulcers. Reddened or discolored skin on the leg. Swelling. DIAGNOSIS Your caregiver can diagnose CVI after performing a careful medical history and physical examination. To confirm the diagnosis, the following tests may also be ordered: Duplex ultrasound. Plethysmography (tests blood flow). Venograms (x-ray using a special dye). TREATMENT The goals of treatment for CVI are to restore a person to an active life and to minimize pain or disability. Typically, CVI does not pose a serious threat to life or limb, and with proper treatment most people with this condition can continue to lead active lives. In most cases, mild CVI can be treated on an outpatient basis with simple procedures. Treatment methods include: Elastic compression socks. Sclerotherapy , a procedure involving an injection of a material that "dissolves" the damaged veins. Other veins in the network of blood vessels take over the function of the damaged veins. Vein stripping (an older procedure less commonly used). Laser Ablation surgery. Valve repair. HOME CARE INSTRUCTIONS Elastic compression socks must be worn every day. They can help with symptoms and lower the chances of the problem getting worse, but they do not cure the problem. Only take [id number] or prescription medicines for pain, discomfort, or fever as directed by your caregiver. Your caregiver will review your other medications with you. SEEK MEDICAL CARE IF: You are confused about how to take your medications. There is redness, swelling, or increasing pain in the affected area. There is a red streak or line that extends up or down from the affected area. There is a breakdown or loss of skin in the affected area, even if the breakdown is small. You develop an unexplained oral temperature above 102 F (38.9 C). There is an injury to the affected area. SEEK IMMEDIATE MEDICAL CARE IF: There is an injury and open wound to the affected area. Pain is not adequately relieved with pain medication prescribed or becomes severe. An oral temperature above 102 F (38.9 C) develops. The foot/ankle below the affected area becomes suddenly numb or the area feels weak and hard to move. MAKE SURE YOU: Understand these instructions. Will watch your condition. Will get help right away if you are not doing well or get worse. Document Released: 07/15/2007 Document Revised: 06/02/2012 Document Reviewed: [facility] Patient Information 2014 [employer] [facility]. No follow up information was provided. Extracted from: Title: Office Visit Note Author: Triston Rader MD Date: 04/16/14 Assessment/Plan Chronic venous hypertension involving left side The patient is doing well after her endovenous ablation of her left great and small saphenous veins as well as follow-up ambulatory phlebectomy. The patient has no residual pain. Consequently we will have her come back to vein clinic if she has any further questions or problems. Otherwise we will see her back when necessary. Referrals to Other Providers Referred by: Triston Rader MD
--- OUTSIDE RECORDS SUMMARY | 2016-06-08 08:18 | XMS REPORT | Referral Summary ---
Author Author [facility] [place], [facility] Organization [facility] [place], [facility] Address Unknown Phone Unavailable Care Team Providers Care Firefighter Marine Name Role Phone Kane Harley Primary Care Physician [phone] Encounter VC Date(s): 04/20/15 - 04/20/15 [facility] [place], [address] [place] [address]- Discharge Diagnosis: Muscle spasm Discharge Diagnosis: Arthritis Discharge Disposition: 01-Home or Self Care Attending Physician: Danna Harley DO Admitting Physician: Danna Harley DO Vital Signs Most recent to 1 oldest [Reference Range]: Peripheral Pulse 67 bpm Rate [60-100 bpm] (04/20/15 10:11 AM) Respiratory Rate 18 br/min [14-20 br/min] (04/20/15 10:11 AM) Blood Pressure 122/72 mmHg [90-140/60-90 mmHg] (04/20/15 10:11 AM) SpO2 96 % (04/20/15 10:11 AM) Problem List Condition Effective Dates Status [...] 0 Refill(s) Start Date: 09/07/13 Status: Ordered cyclobenzaprine 10 mg oral tablet 10 mg 1 tabs, Oral, TID, as needed for spasm, # 30 tabs, 0 Refill(s), Pharmacy: [facility] #[id number], 1 tabs Oral TID,PRN:as needed for spasm Start Date: 04/20/15 Stop Date: 04/30/15 Status: Ordered Diovan 80 mg oral tablet 1 tabs, Oral, Daily, # 90 tabs, 3 Refill(s), 1 tabs Oral Daily,x90 days Start Date: 05/21/14 Stop Date: 05/16/15 Status: Ordered furosemide 20 mg oral tablet 20 mg 1 tabs, Oral, Daily, # 60 tabs, 2 Refill(s), eRx: [facility] #[id number] , TAKE ONE TABLET BY MOUTH TWICE A DAY Start Date: 09/06/14 Status: Ordered hydrALAZINE 25 mg oral tablet See Instructions, TAKE ONE TABLET BY MOUTH THREE TIMES A DAY, # 90 tabs, 1 Refill(s), Pharmacy: [facility] #[id number], TAKE ONE TABLET BY MOUTH THREE TIMES A DAY Start Date: 03/28/15 Status: Ordered HYDROcodone-acetaminophen 7.5 mg-325 mg oral tablet 1 tabs, Oral, TID, as needed for pain, # 90 tabs, 0 Refill(s) Start Date: 01/20/15 Stop Date: 02/19/15 Status: Ordered Klor-Con M20 oral tablet, extended release 20 mEq 1 tabs, Oral, Every other day, # 30 tabs, 2 Refill(s), Pharmacy: [facility] #[id number], 1 tabs Oral Every other day Start Date: 03/24/15 Status: Ordered metoprolol tartrate 100 mg oral tablet 1 tabs, Oral, BID, # 180 tabs, 4 Refill(s), Pharmacy: [facility] #[id number] Start Date: 07/07/14 Status: Ordered omeprazole 40 mg oral delayed release capsule See Instructions, TAKE ONE CAPSULE BY MOUTH ONCE A DAY, # 30 caps, 11 Refill(s) , eRx: [facility] #[id number], TAKE ONE CAPSULE BY MOUTH ONCE A DAY Start Date: 10/04/14 Status: Ordered PROzac 20 mg oral capsule See Instructions, TAKE ONE CAPSULE BY MOUTH EVERY DAY, # 90 caps, eRx: [facility] #[id number], TAKE ONE CAPSULE BY MOUTH EVERY DAY Start Date: 02/15/15 Status: Ordered Xarelto 20 mg oral tablet 20 mg 1 tabs, Oral, qPM, # 30 tabs, 6 Refill(s), Pharmacy: [facility] # [id number], 1 tabs Oral qPM,x30 days Start Date: [...] Cigarettes Assessment and Plan Extracted from: Title: DOC neck pain Author: Danna Harley DO Date: 04/20/15 Assessment/Plan Arthritis Ordered: Office Visit Level 3 Est 80162 Muscle spasm Ordered: Office Visit Level 3 Est 86639 Neck pain Ordered: Office Visit Level 3 Est 31465 Orders: cyclobenzaprine, 10 mg 1 tabs, Oral, TID, as needed for spasm, # 30 tabs, 0 Refill(s), Pharmacy: [facility] #[id number], 1 tabs Oral TID,PRN:as needed for spasm The muscle spasm is likely secondary to arthritis as this was shown on the x- ray. No fracture was evident. Patient can continue to use her pain medication for painand we will give heran IM steroid injection to help with inflammation. She will use the cyclobenzaprine with caution. I have called told her on the adverse effects of the elderly. She should continue to use heat nights. Patient is to return to clinic if not improving.
--- OUTSIDE RECORDS SUMMARY | 2016-06-08 08:18 | XMS REPORT | Referral Summary ---
Author Author [facility] [place], [facility] Organization [facility] Address Unknown Phone Unavailable Care Team Providers Care Contact Center Director Name Role Phone Kane Harley Primary Care Physician [phone] Encounter VC Date(s): 12/27/15 - 12/27/15 [facility] [place], [address] [place] [address]- Discharge Diagnosis: Benign essential hypertension Discharge Diagnosis: Shortness of breath Discharge Diagnosis: Fatigue Discharge Disposition: 01-Home or Self Care Attending Physician: Danna Harley DO Admitting Physician: Danna Harley DO Vital Signs Most recent to 1 oldest [Reference Range]: Temperature Tympanic 36.9 degC [36.6-38.1 degC] (12/27/15 12:48 PM) Peripheral Pulse 70 bpm Rate [60-100 bpm] (12/27/15 12:48 PM) Respiratory Rate 16 br/min [14-20 br/min] (12/27/15 12:48 PM) Blood Pressure 158/88 mmHg [90-140/60-90 mmHg] *HI* (12/27/15 12:48 PM) SpO2 98 % (12/27/15 12:48 PM) Problem List Condition Effective Dates Status [...] Daily, # 90 tabs, 1 Refill(s), Pharmacy: [facility] # [id number], 1 tabs Oral Daily,x90 days Start Date: 05/19/15 Stop Date: 11/15/15 Status: Ordered furosemide 20 mg oral tablet See Instructions, TAKE ONE TABLET BY MOUTH DAILY, # 60 tabs, 3 Refill(s), eRx: [facility] #[id number], TAKE ONE TABLET BY MOUTH DAILY Start Date: 09/13/15 Status: Ordered hydrALAZINE 25 mg oral tablet See Instructions, TAKE ONE TABLET BY MOUTH THREE TIMES A DAY, # 90 tabs, 2 Refill(s), eRx: [facility] #[id number], TAKE ONE TABLET BY MOUTH THREE TIMES A DAY Start Date: 12/19/15 Status: Ordered HYDROcodone-acetaminophen 7.5 mg-325 mg oral tablet 1 tabs, Oral, TID, as needed for pain, # 90 tabs, 0 Refill(s) Start Date: 11/18/15 Stop Date: 12/18/15 Status: Ordered Klor-Con M20 oral tablet, extended release See Instructions, TAKE ONE TABLET BY MOUTH EVERY OTHER DAY, # 30 tabs, 3 Refill( s), eRx: [facility] #[id number], TAKE ONE TABLET BY MOUTH EVERY OTHER DAY Start Date: 10/18/15 Status: Ordered Metoprolol Tartrate 100 mg oral tablet See Instructions, TAKE ONE TABLET BY MOUTH TWICE A DAY, # 180 tabs, 3 Refill(s) , eRx: [facility] #[id number], TAKE ONE TABLET BY MOUTH TWICE A DAY Start Date: 07/19/15 Status: Ordered omeprazole 40 mg oral delayed release capsule See Instructions, TAKE ONE CAPSULE BY MOUTH DAILY, # 30 caps, eRx: [facility] #[id number], TAKE ONE CAPSULE BY MOUTH DAILY Start Date: 12/12/15 Status: Ordered PROzac 20 mg oral capsule 20 mg 1 caps, Oral, Daily, # 90 caps, 1 Refill(s), Pharmacy: [facility] # [id number], 1 caps Oral Daily Start Date: 08/01/15 Status: Ordered Xarelto 20 mg oral tablet See Instructions, TAKE ONE TABLET BY MOUTH EVERY EVENING, # 30 tabs, 5 Refill(s) , eRx: [facility] #[id number], TAKE ONE TABLET BY MOUTH EVERY EVENING [...] 2003 Vaginal Pap smear 01/29/02 Blood transfusion 2000 Adenoidectomy ILENE - Total abdominal hysterectomy Tonsillectomy [...] Visit Note Author: Danna Harley DO Date: 12/27/15 Assessment/Plan Benign essential hypertension This appears to be slightly higher today but was good a couple of weeks ago. Advised patient that her blood pressure wrist cuff is not accurate and she should no longer use it. I advised her that since EKG was normal today perhaps she should get back in with Dr. Carlson if her home measures on a more accurate device continue to be high like they were. Ordered: Office Visit Level 3 Est 30950 Fatigue This appears to be short-lived. Advised her that this could be a viral prodrome or could be something more serious. EKG today is normal. Have her follow up with Dr. Carlson in with me if this doesn't resolve. Ordered: Office Visit Level 3 Est 01579 Shortness of breath EKG is normal, this appears to be chronic in nature, return to clinic with any further concerns and make sure she follows up with Dr. Carlsonas she is late to do so in should have done so in October. Ordered: Office Visit Level 3 Est 30485
--- OUTSIDE RECORDS SUMMARY | 2016-06-08 08:19 | XMS REPORT | Referral Summary ---
Author Organization Unknown Address Unknown Phone Unavailable Care Team Providers Care Openstack Cloud Consulting Architect Name Role Phone Cameron Kirkland Primary Care Physician [phone] Encounter VC Date(s): 04/20/14 - 04/20/14 [address] [facility], [address] [place] [address] Discharge Diagnosis: Benign essential hypertension (disorder) Discharge Disposition: Home or Self Care Attending Physician: Walter Kirkland MD Admitting Physician: Walter Kirkland MD Vital Signs Most recent to 1 oldest [Reference Range]: Temperature Tympanic 36.0 degC [36.6-38.1 degC] *LOW* (04/20/14 9:35 AM) Peripheral Pulse 71 bpm Rate [60-100 bpm] (04/20/14 9:35 AM) Respiratory Rate 16 br/min [14-20 br/min] (04/20/14 9:35 AM) Blood Pressure 162/82 mmHg [90-140/60-90 mmHg] *HI* (04/20/14 9:35 AM) Most recent to 1 oldest [Reference Range]: SpO2 98 % (04/20/14 9:35 AM) Problem List Condition Effective Dates Status [...] Daily, # 30 caps, 6 Refill(s), Pharmacy: [facility] #[id number] , 1 caps Oral Daily Start Date: 04/12/14 Status: Ordered furosemide 20 mg oral tablet See Instructions, TAKE ONE TABLET BY MOUTH TWICE A DAY, # 60 tabs, 5 Refill(s), eRx: [facility] #[id number], TAKE ONE TABLET BY MOUTH TWICE A [...] DAY, # 30 tabs, 1 Refill(s), eRx: [facility] #[id number], TAKE ONE TABLET BY MOUTH EVERY DAY Special Instructions: TAKE ONE TABLET BY MOUTH EVERY DAY Start Date: 03/15/14 Status: Ordered Metoprolol Tartrate 50 mg oral tablet See Instructions, TAKE ONE TABLET BY MOUTH TWICE A DAY, # 60 tabs, 5 Refill(s), eRx: [facility] #[id number], TAKE ONE TABLET BY MOUTH TWICE A DAY Special Instructions: TAKE ONE TABLET BY MOUTH TWICE A DAY Start Date: 12/09/13 Status: Ordered niacin 1,500 mg, Oral, Bedtime (once a day), 0 Refill(s) Start Date: 09/07/13 Status: Ordered omeprazole 20 mg oral delayed release tablet 1 tabs, Oral, BID, # 60 tabs, 0 Refill(s), Pharmacy: [facility] #[id number], 1 tabs Oral BID Start Date: 09/08/13 Status: Ordered PROzac 20 mg oral capsule See Instructions, TAKE ONE CAPSULE BY MOUTH EVERY DAY, # 90 caps, 2 Refill(s), eRx: [facility] #[id number], TAKE ONE CAPSULE BY MOUTH EVERY DAY [...] Visit Note Author: Walter Kirkland MD Date: 04/20/14 Assessment/Plan Benign essential hypertension (disorder) I am going to continue the current blood pressure medications for now. I want to see back in a month. I reviewed your kidney sonogram which was normal. I reviewed your chart which revealed that in July we had started on meloxicam which led to a gastritis. That was treated in meloxicam was stopped and then in August your found to have a creatinine of 2.15. At that time we will order Diovan was discontinued. Your creatinine returned to normal. It seems that your hypertension is probably related to your kidney. I'll keep this in mind on further visits. At your next visit please review your blood pressures and I'll review those. Continue all current medications for now.
--- OUTSIDE RECORDS SUMMARY | 2016-06-08 08:19 | XMS REPORT | Continuity of Care Document ---
Author Author [facility] Organization [facility] Address Unknown Phone Unavailable Allergies Medications Problems Procedures Results Encounters ACCT No. Visit Date/Time Discharge Status Pt. Type Provider Facility Loc./Unit Complaint [id number] 05/04/2013 08:02:00 05/04/2013 23 :59:59 CLS Outpatient
--- OUTSIDE RECORDS SUMMARY | 2016-06-08 08:19 | XMS REPORT | Referral Summary ---
Author Author [facility], Family Medicine Organization [facility] Address Unknown Phone Unavailable Care Team Providers Care Floor Press Operator Name Role Phone Kane Harley Primary Care Physician [phone] Encounter VC Date(s): 11/29/15 - 11/29/15 [facility], [address] [place] [address] Discharge Diagnosis: Other hyperlipidemia Discharge Diagnosis: Benign essential hypertension (disorder) Discharge Diagnosis: Chronic pain syndrome Discharge Disposition: 01-Home or Self Care Attending Physician: Danna Harley DO Admitting Physician: Danna Harley DO Vital Signs Most recent to 1 oldest [Reference Range]: Temperature Tympanic 36.9 degC [36.6-38.1 degC] (11/29/15 8:13 AM) Peripheral Pulse 65 bpm Rate [60-100 bpm] (11/29/15 8:13 AM) Respiratory Rate 16 br/min [14-20 br/min] (11/29/15 8:13 AM) Blood Pressure 130/62 mmHg [90-140/60-90 mmHg] (11/29/15 8:13 AM) SpO2 98 % (11/29/15 8:13 AM) Problem List Condition Effective Dates Status [...] Daily, # 90 tabs, 1 Refill(s), Pharmacy: [facility] # [id number], 1 tabs Oral Daily,x90 days Start Date: 05/19/15 Stop Date: 11/15/15 Status: Ordered furosemide 20 mg oral tablet See Instructions, TAKE ONE TABLET BY MOUTH DAILY, # 60 tabs, 3 Refill(s), eRx: [facility] #[id number], TAKE ONE TABLET BY MOUTH DAILY Start Date: 09/13/15 Status: Ordered hydrALAZINE 25 mg oral tablet See Instructions, TAKE ONE TABLET BY MOUTH THREE TIMES A DAY, # 90 tabs, eRx: [facility] #[id number], TAKE ONE TABLET BY MOUTH THREE TIMES A DAY Start Date: 11/21/15 Status: Ordered HYDROcodone-acetaminophen 7.5 mg-325 mg oral tablet 1 tabs, Oral, TID, as needed for pain, # 90 tabs, 0 Refill(s) Start Date: 11/18/15 Stop Date: 12/18/15 Status: Ordered Klor-Con M20 oral tablet, extended release See Instructions, TAKE ONE TABLET BY MOUTH EVERY OTHER DAY, # 30 tabs, 3 Refill( s), eRx: [facility] #[id number], TAKE ONE TABLET BY MOUTH EVERY OTHER DAY Start Date: 10/18/15 Status: Ordered Metoprolol Tartrate 100 mg oral tablet See Instructions, TAKE ONE TABLET BY MOUTH TWICE A DAY, # 180 tabs, 3 Refill(s) , eRx: [facility] #[id number], TAKE ONE TABLET BY MOUTH TWICE A DAY Start Date: 07/19/15 Status: Ordered omeprazole 40 mg oral delayed release capsule See Instructions, TAKE ONE CAPSULE BY MOUTH DAILY, # 30 caps, eRx: [facility] #[id number], TAKE ONE CAPSULE BY MOUTH DAILY Start Date: 11/14/15 Status: Ordered PROzac 20 mg oral capsule 20 mg 1 caps, Oral, Daily, # 90 caps, 1 Refill(s), Pharmacy: [facility] # [id number], 1 caps Oral Daily Start Date: 08/01/15 Status: Ordered Xarelto 20 mg oral tablet See Instructions, TAKE ONE TABLET BY MOUTH EVERY EVENING, # 30 tabs, 5 Refill(s) , eRx: [facility] #[id number], TAKE ONE TABLET BY MOUTH EVERY EVENING Start Date: 11/14/15 Status: Ordered Results Chemistry Most recent to 1 oldest [Reference Range]: Sodium Lvl [135-144 141 mEq/L mEq/L] (11/29/15 8:45 AM) Potassium Lvl 4.3 mEq/L [3.5-5.2 mEq/L] (11/29/15 8:45 AM) Chloride [99-111 105 mEq/L mEq/L] (11/29/15 8:45 AM) CO2 [22-31 mEq/L] 24 mEq/L (11/29/15 8:45 AM) AGAP [3-20] 12 (11/29/15 8:45 AM) BUN [10-20 mg/dL] 19 mg/dL (11/29/15 8:45 AM) Glucose Lvl [70-99 98 mg/dL mg/dL] (11/29/15 8:45 AM) Creatinine Lvl 1.08 mg/dL [0.57-1.11 mg/dL] (11/29/15 8:45 AM) eGFR [>60 mL/min] 49 mL/min 1 *ABN* (11/29/15 8:45 AM) Calcium Lvl 9.6 mg/dL [8.9-10.5 mg/dL] (11/29/15 8:45 AM) Albumin Lvl [3.4-4.8 4.2 gm/dL gm/dL] (11/29/15 8:45 AM) Total Protein 6.4 gm/dL [6.0-7.6 gm/dL] (11/29/15 8:45 AM) Globulin [1.8-4.0 2.2 gm/dL gm/dL] (11/29/15 8:45 AM) ALT [0-55 U/L] 12 U/L (11/29/15 8:45 AM) AST [5-34 U/L] 20 U/L (11/29/15 8:45 AM) Alk Phos [40-150 62 U/L U/L] (11/29/15 8:45 AM) Bili Total [0.2-1.2 0.5 mg/dL mg/dL] (11/29/15 8:45 AM) Chol [0-199 mg/dL] 250 mg/dL *HI* (11/29/15 8:45 AM) Trig [0-149 mg/dL] 394 mg/dL *HI* (11/29/15 8:45 AM) HDL [40-84 mg/dL] 38 mg/dL *LOW* (11/29/15 8:45 AM) LDL [0-130 mg/dL] 133 mg/dL *HI* (11/29/15 8:45 AM) VLDL Cholesterol 79 mg/dL [0-28 mg/dL] *HI* (11/29/15 8:45 AM) Cardiac Risk 6.6 [0.0-5.0] *HI* (11/29/15 8:45 AM) 1Result Comment: Multiply eGFR results by 1.21 for race. Immunizations Vaccine Date Refusal Reason tetanus/diphth/pertuss (Tdap) adult/adol 07/09/14 influenza virus vaccine, inactivated 02/24/15 influenza virus vaccine, live 05/04/13 Procedures Procedure Date Related Diagnosis Body Site Ambulatory Phlebectomy Left Leg 03/26/14 EVLT Left GSV 03/12/14 EVLT Left SSV 03/12/14 Colonoscopy and biopsy of colon1 09/17/13 Esophagogastroduodenoscopy and biopsy2 09/17/13 Cystoscopy 08/04/12 Mammogram 02/23/10 Esophagogastroduodenoscopy and dilation of 12/23/08 esophageal stricture3, 4 Cardiac catheterization5 2008 Knee replacement - right 2009 Bone densimetry [...] Visit Note Author: Danna Harley DO Date: 11/29/15 Assessment/Plan Benign essential hypertension (disorder) Blood pressure is good, lab work today, continue current regimen, return to clinic in 3 months. Ordered: Office Visit Level 4 Est 25937 Chronic pain syndrome She is doing well on her currentcontrolled substance regimen. Return to clinic in 3 months. Ordered: Office Visit Level 4 Est 44079 Other hyperlipidemia CMP and FLP today. We discussed at lengththe newer agents such as repatha but patient declines referral to discuss this with cardiology at this time. Ordered: Comprehensive Metabolic Panel Lipid Panel Office Visit Level 4 Est 56304
--- OUTSIDE RECORDS SUMMARY | 2016-06-08 08:19 | XMS REPORT | Referral Summary ---
Author Author [facility], [facility] Organization [facility] Address Unknown Phone Unavailable Care Team Providers Care Medical Detailist Name Role Phone Kane Harley Primary Care Physician [phone] Encounter Date(s): 08/26/15 - 08/26/15 [facility], [address] [place] [address]- Discharge Diagnosis: Degenerative joint disease Discharge Diagnosis: Bilateral lower extremity edema Discharge Diagnosis: Benign essential hypertension (disorder) Discharge Diagnosis: Personal history of DVT (deep vein thrombosis) Discharge Diagnosis: History of recent travel Discharge Disposition: 01-Home or Self Care Attending Physician: Danna Harley DO Admitting Physician: Danna Harley DO Vital Signs Most recent to 1 oldest [Reference Range]: Temperature Tympanic 37.0 degC [36.6-38.1 degC] (08/26/15 7:53 AM) Peripheral Pulse 69 bpm Rate [60-100 bpm] (08/26/15 7:53 AM) Respiratory Rate 16 br/min [14-20 br/min] (08/26/15 7:53 AM) Blood Pressure 118/70 mmHg [90-140/60-90 mmHg] (08/26/15 7:53 AM) SpO2 97 % (08/26/15 7:53 AM) Problem List Condition Effective Dates Status [...] Daily, # 90 tabs, 1 Refill(s), Pharmacy: [facility] # [id number], 1 tabs Oral Daily,x90 days Start Date: 05/19/15 Stop Date: 11/15/15 Status: Ordered furosemide 20 mg oral tablet 20 mg 1 tabs, Oral, Daily, # 60 tabs, 2 Refill(s), Pharmacy: [facility] # [id number], 1 tabs Oral Daily Start Date: 05/10/15 Status: Ordered hydrALAZINE 25 mg oral tablet See Instructions, TAKE ONE TABLET BY MOUTH THREE TIMES A DAY, # 90 tabs, eRx: [facility] #[id number], TAKE ONE TABLET BY MOUTH THREE TIMES A DAY Start Date: 08/10/15 Status: Ordered HYDROcodone-acetaminophen 7.5 mg-325 mg oral tablet 1 tabs, Oral, TID, as needed for pain, # 90 tabs, 0 Refill(s) Start Date: 07/25/15 Stop Date: 08/24/15 Status: Ordered Klor-Con M20 oral tablet, extended release 20 mEq 1 tabs, Oral, Every other day, # 30 tabs, 2 Refill(s), Pharmacy: [facility] #[id number], 1 tabs Oral Every other day Start Date: 03/24/15 Status: Ordered Metoprolol Tartrate 100 mg oral tablet See Instructions, TAKE ONE TABLET BY MOUTH TWICE A DAY, # 180 tabs, 3 Refill(s) , eRx: [facility] #[id number], TAKE ONE TABLET BY MOUTH TWICE A DAY Start Date: 07/19/15 Status: Ordered omeprazole 40 mg oral delayed release capsule See Instructions, TAKE ONE CAPSULE BY MOUTH ONCE A DAY, # 30 caps, 11 Refill(s) , eRx: [facility] #[id number], TAKE ONE CAPSULE BY MOUTH ONCE A DAY Start Date: 10/04/14 Status: Ordered PROzac 20 mg oral capsule 20 mg 1 caps, Oral, Daily, # 90 caps, 1 Refill(s), Pharmacy: [facility] # [id number], 1 caps Oral Daily Start Date: 08/01/15 Status: Ordered Xarelto 20 mg oral tablet 20 mg 1 tabs, Oral, qPM, # 30 tabs, 6 Refill(s), Pharmacy: [facility] # [id number], 1 tabs Oral qPM,x30 days Start Date: [...] Visit Note Author: Danna Harley DO Date: 08/26/15 Assessment/Plan Benign essential hypertension (disorder) Stable, continue current meds. Return to clinic 3 months. Ordered: Office Visit Level 4 Est 15540 Bilateral lower extremity edema She is to continue Lasix and PHIL hose. We will do a bilateral lower extremity venous Doppler to rule out DVT. Ordered: Office Visit Level 4 Est 94866 Degenerative joint disease Continue [place] as needed. Return to clinic 3 months. Ordered: Office Visit Level 4 Est 61003 History of recent travel Ultrasound of rule out DVT. Personal history of DVT (deep vein thrombosis) Ultrasound to rule out DVT. Ordered: Office Visit Level 4 Est 77698
--- OUTSIDE RECORDS SUMMARY | 2016-06-08 08:19 | XMS REPORT | Referral Summary ---
Author Author [facility], [facility] Organization [facility] Address Unknown Phone Unavailable Care Team Providers Care Receiving Lead Name Role Phone Kane Harley Primary Care Physician [phone] Encounter VC Date(s): 02/24/15 - 02/24/15 [facility], [address] [place] [address]- Discharge Diagnosis: History of gastric ulcer Discharge Diagnosis: Arthritis Discharge Diagnosis: Hyperlipidemia Discharge Diagnosis: Insomnia Discharge Diagnosis: Benign essential hypertension (disorder) Discharge Diagnosis: Depression Discharge Diagnosis: Personal history of DVT (deep vein thrombosis) Discharge Disposition: 01-Home or Self Care Attending Physician: Danna Harley DO Admitting Physician: Danna Harley DO Vital Signs Most recent to 1 oldest [Reference Range]: Temperature Tympanic 36.9 degC [36.6-38.1 degC] (02/24/15 8:46 AM) Peripheral Pulse 73 bpm Rate [60-100 bpm] (02/24/15 8:46 AM) Respiratory Rate 16 br/min [14-20 br/min] (02/24/15 8:46 AM) Blood Pressure 130/70 mmHg [90-140/60-90 mmHg] (02/24/15 8:46 AM) SpO2 96 % (02/24/15 8:46 AM) Problem List Condition Effective Dates Status Health Status Informant Acute DVT (deep Active venous thrombosis)(Confirme d) Anemia- Resolved pernicious(Confirmed ) Anemia Active (disorder)(Confirmed ) Angina(Confirmed) Resolved Arthritis(Confirmed) Active Asthma(Confirmed) Resolved [...] Daily, # 60 tabs, 2 Refill(s), eRx: [facility] #[id number] , TAKE ONE TABLET BY MOUTH TWICE A DAY Start Date: 09/06/14 Status: Ordered hydrALAZINE 25 mg oral tablet See Instructions, TAKE ONE TABLET BY MOUTH THREE TIMES A DAY, # 90 tabs, eRx: [facility] #[id number], TAKE ONE TABLET BY MOUTH THREE TIMES A DAY Start Date: 02/21/15 Status: Ordered HYDROcodone-acetaminophen 7.5 mg-325 mg oral tablet 1 tabs, Oral, TID, as needed for pain, # 90 tabs, 0 Refill(s) Start Date: 01/20/15 Stop Date: 02/19/15 Status: Ordered Klor-Con M20 oral tablet, extended release 20 mEq 1 tabs, Oral, Every other day, # 30 tabs, 2 Refill(s), eRx: [facility] #[id number], TAKE ONE TABLET BY MOUTH DAILY Start Date: 09/06/14 Status: Ordered metoprolol tartrate 100 mg oral tablet 1 tabs, Oral, BID, # 180 tabs, 4 Refill(s), Pharmacy: [facility] #[id number] Start Date: 07/07/14 Status: Ordered omeprazole 40 mg oral delayed release capsule See Instructions, TAKE ONE CAPSULE BY MOUTH ONCE A DAY, # 30 caps, 11 Refill(s) , eRx: [facility] #[id number], TAKE ONE CAPSULE BY MOUTH ONCE A DAY Start Date: 10/04/14 Status: Ordered PROzac 20 mg oral capsule See Instructions, TAKE ONE CAPSULE BY MOUTH EVERY DAY, # 90 caps, eRx: [facility] #[id number], TAKE ONE CAPSULE BY MOUTH EVERY DAY Start Date: 02/15/15 Status: Ordered Xarelto 20 mg oral tablet 20 mg 1 tabs, Oral, qPM, # 30 tabs, 6 Refill(s), Pharmacy: [facility] # [id number], 1 tabs Oral qPM,x30 days Start Date: 08/06/14 Stop Date: 03/04/15 Status: Ordered zolpidem 10 mg oral tablet [...] Visit Note Author: Danna Harley DO Date: 02/24/15 Assessment/Plan Arthritis We'll continue [place] as needed. Patient signed controlled substance agreement today. Return to clinic 3 months. Ordered: Office Visit Level 4 Est 91010 Benign essential hypertension (disorder) Well-controlled on current regimen. Labs are up-to-date. Continue with Dr. Carlson. Depression Well-controlled on Prozac at the current time. Ordered: Office Visit Level 4 Est 57388 History of gastric ulcer We'll continue omeprazole. Continue to monitor for signs and symptoms. Stable at this time. Ordered: Office Visit Level 4 Est 51756 Hyperlipidemia Statin intolerant. Monitored by Dr. Carlson. Immunization due Flu shot today. Insomnia Ambien refill provided today. Return to clinic in 3 months. Ordered: Office Visit Level 4 Est 35853 Personal history of DVT (deep vein thrombosis) Continue on Xarelto, patient seems to be doing well. Orders: zolpidem, 10 mg 1 tabs, Oral, Bedtime (once a day), as needed for sleep, # 30 tabs, 3 Refill(s)
--- OUTSIDE RECORDS SUMMARY | 2016-06-08 08:19 | XMS REPORT | Referral Summary ---
Author Author [facility], Cardiology Organization [facility], Cardiology Address Unknown Phone Unavailable Care Team Providers Care Riveter Name Role Phone Kane Harley Primary Care Physician [phone] Encounter VC Date(s): 02/07/16 - 02/07/16 [facility], Cardiology [address], [place] [address] Discharge Diagnosis: Fatigue Discharge Diagnosis: Statin intolerance Discharge Diagnosis: History of DVT in adulthood Discharge Diagnosis: Coronary heart disease Discharge Disposition: 01-Home or Self Care Attending Physician: Nicanor Carlson MD Admitting Physician: Nicanor Carlson MD Vital Signs Most recent to 1 oldest [Reference Range]: Peripheral Pulse 66 bpm Rate [60-100 bpm] (02/07/16 9:15 AM) Blood Pressure 152/70 mmHg [90-140/60-90 mmHg] *HI* (02/07/16 9:15 AM) Problem List Condition Effective Dates Status [...] Daily, # 90 tabs, 1 Refill(s), Pharmacy: [facility] # [id number], 1 tabs Oral Daily,x90 days Start Date: 05/19/15 Stop Date: 11/15/15 Status: Ordered FLUoxetine 20 mg oral capsule See Instructions, TAKE ONE CAPSULE BY MOUTH DAILY, # 90 caps, eRx: [facility] #[id number], TAKE ONE CAPSULE BY MOUTH DAILY Start Date: 02/02/16 Status: Ordered furosemide 20 mg oral tablet See Instructions, TAKE ONE TABLET BY MOUTH DAILY, # 60 tabs, 3 Refill(s), eRx: [facility] #[id number], TAKE ONE TABLET BY MOUTH DAILY Start Date: 09/13/15 Status: Ordered hydrALAZINE 25 mg oral tablet See Instructions, TAKE ONE TABLET BY MOUTH THREE TIMES A DAY, # 90 tabs, 2 Refill(s), eRx: [facility] #[id number], TAKE ONE TABLET BY MOUTH THREE TIMES [...] # 30 tabs, 3 Refill( s), eRx: [facility] #[id number], TAKE ONE TABLET BY MOUTH EVERY OTHER DAY Start Date: 10/18/15 Status: Ordered Metoprolol Tartrate 100 mg oral tablet See Instructions, TAKE ONE TABLET BY MOUTH TWICE A DAY, # 180 tabs, 3 Refill(s) , eRx: [facility] #[id number], TAKE ONE TABLET BY MOUTH TWICE A DAY Start Date: 07/19/15 Status: Ordered multivitamin Daily, 0 Refill(s) Start Date: 02/07/16 Status: Ordered omeprazole 40 mg oral delayed release capsule See Instructions, TAKE ONE CAPSULE BY MOUTH DAILY, # 30 caps, eRx: [facility] #[id number], TAKE ONE CAPSULE BY MOUTH DAILY Start Date: 01/16/16 Status: Ordered Xarelto 20 mg oral tablet See Instructions, TAKE ONE TABLET BY MOUTH EVERY EVENING, # 30 tabs, 5 Refill(s) , eRx: [facility] #[id number], TAKE ONE TABLET BY MOUTH EVERY EVENING [...]
--- OUTSIDE RECORDS SUMMARY | 2016-06-08 08:19 | XMS REPORT | Referral Summary ---
Author Author [facility], Family Medicine Organization [facility] Address Unknown Phone Unavailable Care Team Providers Care Campground Hand Name Role Phone Kane Harley Primary Care Physician [phone] Encounter VC Date(s): 11/09/14 - 11/09/14 [facility], [address] [place] [address] Discharge Disposition: 01-Home or Self Care Attending Physician: Walter Kirkland MD Admitting Physician: Walter Kirkland MD Vital Signs Most recent to 1 oldest [Reference Range]: Temperature Tympanic 36.5 degC [36.6-38.1 degC] *LOW* (11/09/14 8:10 AM) Peripheral Pulse 68 bpm Rate [60-100 bpm] (11/09/14 8:10 AM) Blood Pressure 142/76 mmHg [90-140/60-90 mmHg] *HI* (11/09/14 8:10 AM) Problem List Condition Effective Dates Status [...] Refill(s), Pharmacy: [facility] # [id number], 1 tabs Oral Daily,x90 days Start Date: 05/19/15 Stop Date: 11/15/15 Status: Ordered furosemide 20 mg oral tablet 20 mg 1 tabs, Oral, Daily, # 60 tabs, 2 Refill(s), Pharmacy: [facility] # [id number], 1 tabs Oral Daily Start Date: 05/10/15 Status: Ordered hydrALAZINE 25 mg oral tablet See Instructions, TAKE ONE TABLET BY MOUTH THREE TIMES A DAY, # 90 tabs, 1 Refill(s), Pharmacy: [facility] #[id number], TAKE ONE TABLET BY MOUTH THREE TIMES [...] 2 Refill(s), Pharmacy: [facility] #[id number], 1 tabs Oral Every other day Start Date: 03/24/15 Status: Ordered metoprolol tartrate 100 mg oral tablet 1 tabs, Oral, BID, # 180 tabs, 4 Refill(s), Pharmacy: [facility] #[id number] Start Date: 07/07/14 Status: Ordered omeprazole 40 mg oral delayed release capsule See Instructions, TAKE ONE CAPSULE BY MOUTH ONCE A DAY, # 30 caps, 11 Refill(s) , eRx: [facility] #[id number], TAKE ONE CAPSULE BY MOUTH ONCE A DAY Start Date: 10/04/14 Status: Ordered PROzac 20 mg oral capsule See Instructions, TAKE ONE CAPSULE BY MOUTH EVERY DAY, # 90 caps, eRx: [facility] #[id number], TAKE ONE CAPSULE BY MOUTH EVERY DAY Start Date: 02/15/15 Status: Ordered Xarelto 20 mg oral tablet 20 mg 1 tabs, Oral, qPM, # 30 tabs, 6 Refill(s), Pharmacy: [facility] # [id number], 1 tabs Oral qPM,x30 days Start Date: [...] Knee replacement - right 2009 Cardiac catheterization6 2003 Blood transfusion 1999 Adenoidectomy ILENE - Total [...] Visit Note Author: Walter Kirkland MD Date: 11/09/14 Assessment/Plan Benign essential hypertension (disorder) Degenerative joint disease Depression GERD (gastroesophageal reflux disease) Insomnia Personal history of DVT (deep vein thrombosis) Plan: I think you're chronic medical problems are stable. We'll continue all current medications. I want you to follow-up in 6 months. Eat a low cholesterol diet. We discussed the importance of exercise and striving to do 5 days a week at 30 minutes low impact exercise. He did healthy diet. Call if you're having any problems. Orders: HYDROcodone-acetaminophen, 1 tabs, Oral, TID, as needed for pain, # 90 tabs, 0 Refill(s)
--- OUTSIDE RECORDS SUMMARY | 2016-06-08 08:19 | XMS REPORT | Referral Summary ---
Author Organization Unknown Address Unknown Phone Unavailable Care Team Providers Care Reconsignment Clerk Name Role Phone Cameron Kirkland Primary Care Physician [phone] Encounter VC Date(s): 07/07/14 - 07/07/14 [facility], [place], Cardiology [address] [place] [address] Dr [place] [address] Discharge Diagnosis: DVT, lower extremity Discharge Diagnosis: Coronary heart disease Discharge Diagnosis: Mixed dyslipidemia Discharge Diagnosis: Accelerated hypertension Discharge Disposition: Home or Self Care Attending Physician: Nicanor Carlson MD Admitting Physician: Nicanor Carlson MD Referring Physician: Walter Kirkland MD Vital Signs Most recent to 1 oldest [Reference Range]: Peripheral Pulse 72 bpm Rate [60-100 bpm] (07/07/14 2:22 PM) Blood Pressure 146/90 mmHg [90-140/60-90 mmHg] *HI* (07/07/14 2:22 PM) Problem List Condition Effective Dates Status [...] Daily, # 60 tabs, 5 Refill(s), eRx: [facility] #[id number], TAKE ONE TABLET BY MOUTH TWICE A DAY Start Date: 11/10/13 Status: Ordered hydrALAZINE 25 mg oral tablet 1 tabs, Oral, TID, # 90 tabs, 6 Refill(s), Pharmacy: [facility] #[id number], 1 tabs Oral TID,x30 days Start Date: 06/18/14 Stop Date: 01/14/15 Status: Ordered HYDROcodone-acetaminophen 7.5 mg-325 mg oral tablet 1 tabs, Oral, TID, as needed for pain, # 90 tabs, 0 Refill(s) Start Date: 06/18/14 Stop Date: 07/18/14 Status: Ordered Klor-Con M20 oral tablet, extended release 1 tabs, Oral, Every other day, # 30 tabs, eRx: [facility] #[id number], TAKE ONE TABLET BY MOUTH DAILY Start Date: 07/05/14 Status: Ordered metoprolol tartrate 100 mg oral tablet 1 tabs, Oral, BID, # 180 tabs, 4 Refill(s), Pharmacy: [facility] #[id number] Start Date: 07/07/14 Status: Ordered Metoprolol Tartrate 50 mg oral tablet See Instructions, TAKE ONE TABLET BY MOUTH TWICE A DAY, # 60 tabs, 4 Refill(s), eRx: [facility] #[id number], TAKE ONE TABLET BY MOUTH TWICE A DAY Special Instructions: TAKE ONE TABLET BY MOUTH TWICE A DAY Start Date: 06/08/14 Status: Ordered omeprazole 40 mg oral delayed release capsule See Instructions, TAKE ONE CAPSULE BY MOUTH ONCE A DAY, # 30 caps, 4 Refill(s), eRx: [facility] #[id number], TAKE ONE CAPSULE BY MOUTH ONCE A DAY Special Instructions: TAKE ONE CAPSULE BY MOUTH ONCE A DAY Start Date: 04/29/14 Status: Ordered PROzac 20 mg oral capsule See Instructions, TAKE ONE CAPSULE BY MOUTH EVERY DAY, # 90 caps, 2 Refill(s), eRx: [facility] #[id number], TAKE ONE CAPSULE BY MOUTH EVERY DAY [...] Refill(s) Start Date: 06/21/14 Status: Ordered Results Chemistry Most recent to 1 oldest [Reference Range]: Sodium Lvl [135-144 142 mEq/L mEq/L] (07/07/14 3:05 PM) Potassium Lvl 4.0 mEq/L [3.5-5.2 mEq/L] (07/07/14 3:05 PM) Chloride [99-111 105 mEq/L mEq/L] (07/07/14 3:05 PM) CO2 [22-31 mEq/L] 25 mEq/L (07/07/14 3:05 PM) AGAP [3-20] 12 (07/07/14 3:05 PM) BUN [10-20 mg/dL] 23 mg/dL *HI* (07/07/14 3:05 PM) Glucose Lvl [70-99 96 mg/dL mg/dL] (07/07/14 3:05 PM) Creatinine Lvl 0.90 mg/dL [0.57-1.11 mg/dL] (07/07/14 3:05 PM) eGFR [>60 mL/min] >60 mL/min 1 (07/07/14 3:05 PM) Calcium Lvl 10.0 mg/dL [8.9-10.5 mg/dL] (07/07/14 3:05 PM) 1Result Comment: Multiply eGFR results by 1.21 for race. Immunizations Vaccine Date Refusal Reason influenza virus vaccine, live 05/04/13 Procedures Procedure Date Related Diagnosis Body Site Ambulatory Phlebectomy Left Leg 03/26/14 EVLT Left GSV 03/12/14 EVLT Left SSV 03/12/14 Colonoscopy and biopsy of colon1 09/17/13 Esophagogastroduodenoscopy and biopsy2 09/17/13 Cystoscopy 08/04/12 Colonoscopy3 12/23/08 Esophagogastroduodenoscopy and dilation of 12/23/08 esophageal stricture4, 5 Cardiac catheterization6 2008 Knee replacement - right 2009 Cardiac catheterization2003 Blood transfusion 1999 Colonoscopy1998 Adenoidectomy ILENE - [...] Former smoker; Type: Cigarettes Assessment and Plan Referrals to Other Providers Referred by: Nicanor Carlson MD
--- OUTSIDE RECORDS SUMMARY | 2016-06-08 08:19 | XMS REPORT | Referral Summary ---
Author Author [facility], Cardiology Organization [facility], [facility] Address Unknown Phone Unavailable Care Team Providers Care Tape Transferrer Name Role Phone Kane Harley Primary Care Physician [phone] Encounter VC Date(s): 03/01/16 - 03/01/16 [facility], Cardiology [address] [place], [place] [address] Discharge Disposition: 01-Home or Self Care Attending Physician: Nicanor Carlson MD Admitting Physician: Nicanor Carlson MD Vital Signs Most recent to 1 oldest [Reference Range]: Peripheral Pulse 69 bpm Rate [60-100 bpm] (03/01/16 11:33 AM) Blood Pressure 161/70 mmHg [90-140/60-90 mmHg] *HI* (03/01/16 11:33 AM) Problem List Condition Effective Dates Status [...] BY MOUTH DAILY, # 90 caps, eRx: [facility] #[id number], TAKE ONE CAPSULE BY MOUTH DAILY Start Date: 02/02/16 Status: Ordered furosemide 20 mg oral tablet See Instructions, TAKE ONE TABLET BY MOUTH DAILY, # 60 tabs, 3 Refill(s), eRx: [facility] #[id number], TAKE ONE TABLET BY MOUTH DAILY Start Date: 09/13/15 Status: Ordered hydrALAZINE 25 mg oral tablet See Instructions, TAKE ONE TABLET BY MOUTH THREE TIMES A DAY, # 90 tabs, 2 Refill(s), eRx: [facility] #[id number], TAKE ONE TABLET BY MOUTH THREE TIMES [...] # 30 tabs, 3 Refill( s), eRx: [facility] #[id number], TAKE ONE TABLET BY MOUTH EVERY OTHER DAY Start Date: 10/18/15 Status: Ordered Metoprolol Tartrate 100 mg oral tablet See Instructions, TAKE ONE TABLET BY MOUTH TWICE A DAY, # 180 tabs, 3 Refill(s) , eRx: [facility] #[id number], TAKE ONE TABLET BY MOUTH TWICE A DAY Start Date: 07/19/15 Status: Ordered multivitamin Daily, 0 Refill(s) Start Date: 02/07/16 Status: Ordered omeprazole 40 mg oral delayed release capsule See Instructions, TAKE ONE CAPSULE BY MOUTH DAILY, # 30 caps, eRx: [facility] #[id number], TAKE ONE CAPSULE BY MOUTH DAILY Start Date: 02/20/16 Status: Ordered valsartan 80 mg oral tablet See Instructions, TAKE ONE TABLET BY MOUTH DAILY, # 90 tabs, eRx: [facility] #[id number], TAKE ONE TABLET BY MOUTH DAILY Start Date: 02/20/16 Status: Ordered Xarelto 20 mg oral tablet See Instructions, TAKE ONE TABLET BY MOUTH EVERY EVENING, # 30 tabs, 5 Refill(s) , eRx: [facility] #[id number], TAKE ONE TABLET BY MOUTH EVERY EVENING Start Date: 11/14/15 Status: Ordered Results No data available for this section Immunizations Vaccine Date Refusal Reason tetanus/diphth/pertuss (Tdap) adult/adol 07/09/14 influenza virus vaccine, inactivated 02/04/16 influenza virus vaccine, inactivated 02/24/15 influenza virus [...]
--- OUTSIDE RECORDS SUMMARY | 2016-06-08 08:19 | XMS REPORT | Referral Summary ---
Author Author [facility], Family [facility] Organization [facility], [facility] Address Unknown Phone Unavailable Care Team Providers Care Speaker Mounter Name Role Phone Kane Harley Primary Care Physician [phone] Encounter VC Date(s): 05/06/15 - 05/06/15 [facility], [address] [place] [address]- Discharge Disposition: 01-Home or Self Care Attending Physician: Danna Harley DO Admitting Physician: Danna Harley DO Vital Signs Most recent to 1 oldest [Reference Range]: Temperature Tympanic 36.8 degC [36.6-38.1 degC] (05/06/15 2:49 PM) Peripheral Pulse 78 bpm Rate [60-100 bpm] (05/06/15 2:49 PM) Respiratory Rate 17 br/min [14-20 br/min] (05/06/15 2:49 PM) Blood Pressure 140/80 mmHg [90-140/60-90 mmHg] (05/06/15 2:49 PM) SpO2 97 % (05/06/15 2:49 PM) Problem List Condition Effective Dates Status [...] Daily, # 60 tabs, 2 Refill(s), eRx: [facility] #[id number] , TAKE ONE TABLET BY MOUTH TWICE A DAY Start Date: 09/06/14 Status: Ordered hydrALAZINE 25 mg oral tablet See Instructions, TAKE ONE TABLET BY MOUTH THREE TIMES A DAY, # 90 tabs, 1 Refill(s), Pharmacy: [facility] #[id number], TAKE ONE TABLET BY MOUTH THREE TIMES A DAY Start Date: 03/28/15 Status: Ordered HYDROcodone-acetaminophen 7.5 mg-325 mg oral tablet 1 tabs, Oral, TID, as needed for pain, # 90 tabs, 0 Refill(s) Start Date: 04/29/15 Stop Date: 05/29/15 Status: Ordered Klor-Con M20 oral tablet, extended release 20 mEq 1 tabs, Oral, Every other day, # 30 tabs, 2 Refill(s), Pharmacy: [facility] #[id number], 1 tabs Oral Every other day Start Date: 03/24/15 Status: Ordered metoprolol tartrate 100 mg oral tablet 1 tabs, Oral, BID, # 180 tabs, 4 Refill(s), Pharmacy: [facility] #[id number] Start Date: 07/07/14 Status: Ordered omeprazole 40 mg oral delayed release capsule See Instructions, TAKE ONE CAPSULE BY MOUTH ONCE A DAY, # 30 caps, 11 Refill(s) , eRx: [facility] #[id number], TAKE ONE CAPSULE BY MOUTH ONCE A DAY Start Date: 10/04/14 Status: Ordered PROzac 20 mg oral capsule See Instructions, TAKE ONE CAPSULE BY MOUTH EVERY DAY, # 90 caps, eRx: [facility] #[id number], TAKE ONE CAPSULE BY MOUTH EVERY DAY Start Date: 02/15/15 Status: Ordered Xarelto 20 mg oral tablet 20 mg 1 tabs, Oral, qPM, # 30 tabs, 6 Refill(s), Pharmacy: [facility] # [id number], 1 tabs Oral qPM,x30 days Start Date: [...]
--- OUTSIDE RECORDS SUMMARY | 2016-06-08 08:20 | XMS REPORT | Continuity of Care Document ---
Author Author Walter Kirkland MD [facility] Address [address] [place] [address] [place] [address] Phone Care Team Providers Care Coffee Roaster Helper Name Role Phone Walter Kirkland PP Unavailable Payers Payer name Insurance type Covered libertarian ID Authorization(s) Unknown Problems Condition Effective Dates (start - stop) Clinical Status Hypertension, Benign - Chronic Depression - Chronic Hypertriglyceridemia - Chronic OTHER ABNORMAL GLUCOSE - Chronic Influenza Vaccine - Hypertension, Benign - *Chronic Depression - *Chronic Hypertriglyceridemia - *Chronic OTHER ABNORMAL GLUCOSE - *Chronic FAMILY HX-GI MALIGNANCY - PURE HYPERCHOLESTEROLEM - MIXED HYPERLIPIDEMIA - OVERWEIGHT - PERNICIOUS ANEMIA - ANEMIA NOS - CATARACT NOS - BENIGN HYPERTENSION - INTRINSIC ASTHMA NOS - ASTHMA NOS - ESOPHAGEAL STRICTURE - STOMACH ULCER NOS - RHEUMATOID ARTHRITIS - GENERAL OSTEOARTHROSIS - CERVICAL DISC DEGEN - KYLAH ESOPH FISTULA/ATRES - INSOMNIA NOS - EDEMA - CHEST PAIN NEC - Depression - *Chronic Hypertension, Benign - Acute Exacerbation HEMATURIA NOS - *Chronic Urethral stricture, unspecified - *Chronic OTHER ABNORMAL GLUCOSE - New onset Traumatic hematoma of upper arm - *Acute Trigonitis - *Chronic Acute pulmonary embolism - *Chronic Acute and chronic deep vein thrombosis of lower ex - *Chronic Ch DVT/embl low ext NOS - *Chronic Hypertension, Benign - Acute Exacerbation Depression - *Chronic Hypertriglyceridemia - *Chronic Pernicious anemia - *Chronic Anemia - *Chronic Hematuria - *Chronic Hypertension, Benign - *Chronic OTHER ABNORMAL GLUCOSE - *Acute Hypertension, Benign - *Chronic Depression - *Chronic Hypertriglyceridemia - *Chronic Depression - Chronic Hypertriglyceridemia - Chronic Acute pulmonary embolism - *Resolved DVT (deep venous thrombosis) - *Resolved Abnormal echocardiogram - Improved Heart disease, hypertensive - *Stable Trigonitis - *Chronic Family History Family Member Diagnosis Age At Onset Status Unknown Social History Social History Element Description Quantity Unknown Allergies, Adverse Reactions, Alerts Substance Reaction Severity Status SULFANILAMIDE Hives/Skin Rash Unknown Medications Medication Instructions Dosage Effective Dates (start - stop) Status niacin 500 mg tablet Take 1 tablet by mouth at bedtime. - Active Aspir-81 81 mg tablet,delayed release take 1 tablet (81MG) by oral route every day 81 MG - Active Calcium 600 with Vitamin D3 600 mg (1,500)-200 unit tablet 1 TAB DAILY Jun - Active Prozac 20 mg capsule Take 1 capsule by mouth every day. - Active furosemide 20 mg tablet Take 1 tablet by mouth twice a day. - Active metoprolol tartrate 50 mg tablet Take 1 tablet by mouth twice a day. - Active Ambien 10 mg tablet Take 1 tablet by mouth at bedtime as needed. 2013 - Active Klor-Con 20 mEq oral packet Take 1 tablet by mouth every day. - Active [place] 7.5 mg-325 mg tablet take 1 tablet by oral route every 4 - 6 hours as needed for pain 0 - Active lisinopril 20 mg tablet take 1 tablet (20MG) by oral route every day 20 MG - Active Immunizations Vaccine Date Status Comments Flu (split) (3 yrs or older) completed Results Test Name Date and Time Measure Units Reference Range Abnormal Flag Comments Unknown Vital Signs Date / Time: Height Weight Pulse Rate Blood Pressure Temperature /08:03:00 59.00 in 158.00 lbs 73 /min 142/90 mm[Hg] 97.6 F Procedures Procedure Date FLU VACCINE,>/=3 YRS, IM ADMINISTRATION OF FLU SHOT Encounters Encounter Location Date Patient Visit [facility] Patient Visit Conversion Patient Visit [facility] Patient Visit [facility] Urology Patient Visit [facility] Patient Visit [facility] Patient Visit [facility] Patient Visit [facility] Patient Visit [facility] Patient Visit [facility] Patient Visit [facility] Patient Visit [facility] Patient Visit Patient Visit [facility] Patient Visit [facility] Patient Visit [facility] Patient Visit [facility] Pulmo Patient Visit [facility] Advance Directives Directive Effective Date Unknown
--- OUTSIDE RECORDS SUMMARY | 2016-06-08 08:20 | XMS REPORT | Referral Summary ---
Author Author [facility], Family Medicine Organization [facility] Address Unknown Phone Unavailable Care Team Providers Care Customer Logistics Manager Name Role Phone Cameron Kirkland Primary Care Physician [phone] Encounter VC Date(s): 08/06/14 - 08/06/14 [facility], [address] [place] [address] Discharge Disposition: 01-Home or Self Care Attending Physician: Walter Kirkland MD Admitting Physician: Walter Kirkland MD Vital Signs Most recent to 1 oldest [Reference Range]: Temperature Tympanic 36.4 degC [36.6-38.1 degC] *LOW* (08/06/14 8:13 AM) Peripheral Pulse 72 bpm Rate [60-100 bpm] (08/06/14 8:13 AM) Respiratory Rate 18 br/min [14-20 br/min] (08/06/14 8:13 AM) Blood Pressure 124/66 mmHg [90-140/60-90 mmHg] (08/06/14 8:13 AM) Problem List Condition Effective Dates [...] of Active DVT (deep vein thrombosis)(Confirme d) Hematuria syndrome Active (disorder)(Confirmed ) Hyperlipidemia(Confi Resolved [...] Daily, # 60 tabs, 2 Refill(s), eRx: [facility] #[id number] , TAKE ONE TABLET BY MOUTH TWICE A DAY Start Date: 09/06/14 Status: Ordered hydrALAZINE 25 mg oral tablet See Instructions, TAKE ONE TABLET BY MOUTH THREE TIMES A DAY, # 90 tabs, eRx: [facility] #[id number], TAKE ONE TABLET BY MOUTH THREE TIMES A DAY Start Date: 01/13/15 Status: Ordered HYDROcodone-acetaminophen 7.5 mg-325 mg oral tablet 1 tabs, Oral, TID, as needed for pain, # 90 tabs, 0 Refill(s) Start Date: 01/20/15 Stop Date: 02/19/15 Status: Ordered Klor-Con M20 oral tablet, extended release 20 mEq 1 tabs, Oral, Every other day, # 30 tabs, 2 Refill(s), eRx: [facility] #[id number], TAKE ONE TABLET BY MOUTH DAILY Start Date: 09/06/14 Status: Ordered metoprolol tartrate 100 mg oral tablet 1 tabs, Oral, BID, # 180 tabs, 4 Refill(s), Pharmacy: [facility] #[id number] Start Date: 07/07/14 Status: Ordered omeprazole 40 mg oral delayed release capsule See Instructions, TAKE ONE CAPSULE BY MOUTH ONCE A DAY, # 30 caps, 11 Refill(s) , eRx: [facility] #[id number], TAKE ONE CAPSULE BY MOUTH ONCE A DAY Start Date: 10/04/14 Status: Ordered PROzac 20 mg oral capsule See Instructions, TAKE ONE CAPSULE BY MOUTH EVERY DAY, # 90 caps, 1 Refill(s), eRx: [facility] #[id number], TAKE ONE CAPSULE BY MOUTH EVERY DAY Start Date: 10/26/14 Status: Ordered Xarelto 20 mg oral tablet 20 mg 1 tabs, Oral, qPM, # 30 tabs, 6 Refill(s), Pharmacy: [facility] # [id number], 1 tabs Oral qPM,x30 days Start Date: 08/06/14 Stop Date: 03/04/15 Status: Ordered zolpidem 10 mg oral tablet 10 mg 1 tabs, Oral, Bedtime (once a day), as needed for sleep, # 30 tabs, 0 Refill(s) Start Date: 12/28/14 Status: Ordered Results No data available for this section Immunizations Vaccine Date Refusal Reason tetanus/diphth/pertuss (Tdap) adult/adol 07/09/14 influenza virus vaccine, live 05/04/13 Procedures Procedure [...] Visit Note Author: Walter Kirkland MD Date: 08/06/14 Assessment/Plan Benign essential hypertension (disorder) Pulmonary embolus Plan: We discussed xerolto Pradaxa and Coumadin. She has 2 weeks of xerolto samples left. She is going to decide at that point whether she wants to continue xerolto start on Coumadin. continue current medications. Follow-up in 3 months. In 3 months I'd like a comp metabolic panel, CBC and INR. Orders: HYDROcodone-acetaminophen, 1 tabs, Oral, TID, as needed for pain, # 90 tabs, 0 Refill(s) rivaroxaban, 20 mg 1 tabs, Oral, qPM, # 30 tabs, 6 Refill(s), Pharmacy: [facility] #[id number], 1 tabs Oral qPM,x30 days
--- OUTSIDE RECORDS SUMMARY | 2016-06-08 08:20 | XMS REPORT | Referral Summary ---
Author Author [facility], [facility] Organization [facility] Address Unknown Phone Unavailable Care Team Providers Care Campus Supervisor Name Role Phone Kane Harley Primary Care Physician [phone] Encounter VC Date(s): 03/28/16 - 03/28/16 [facility], [address] [place] [address]- Discharge Diagnosis: Cough Discharge Diagnosis: Chronic pain syndrome Discharge Disposition: 01-Home or Self Care Attending Physician: Danna Harley DO Admitting Physician: Danna Harley DO Vital Signs Most recent to 1 oldest [Reference Range]: Temperature Tympanic 37.0 degC [36.6-38.1 degC] (03/28/16 2:51 PM) Peripheral Pulse 63 bpm Rate [60-100 bpm] (03/28/16 2:51 PM) Blood Pressure 126/68 mmHg [90-140/60-90 mmHg] (03/28/16 2:51 PM) SpO2 96 % (03/28/16 2:51 PM) Problem List Condition Effective Dates Status [...] wheezing, # 8.5 g, 0 Refill(s), Pharmacy: [facility] #[id number] Start Date: 03/23/16 Status: Ordered Aspirin Low Dose 81 mg, Oral, Daily, 0 Refill(s) Start Date: 09/07/13 Status: Ordered Calcium 600+D 1 tabs, Oral, BID, 0 Refill(s) Start Date: 09/07/13 Status: Ordered cough syrup cough syrup, 0 Refill(s) Start Date: 03/28/16 Status: Ordered FLUoxetine 20 mg oral capsule See Instructions, TAKE ONE CAPSULE BY MOUTH DAILY, # 90 caps, eRx: [facility] #[id number], TAKE ONE CAPSULE BY MOUTH DAILY Start Date: 02/02/16 Status: Ordered furosemide 20 mg oral tablet See Instructions, TAKE ONE TABLET BY MOUTH DAILY, # 60 tabs, 3 Refill(s), eRx: [facility] #[id number], TAKE ONE TABLET BY MOUTH DAILY Start Date: 09/13/15 Status: Ordered hydrALAZINE 25 mg oral tablet See Instructions, TAKE ONE TABLET BY MOUTH THREE TIMES A DAY, # 90 tabs, 1 Refill(s), eRx: [facility] #[id number] Start Date: 03/20/16 Status: Ordered HYDROcodone-acetaminophen 7.5 mg-325 mg oral tablet 1 tabs, Oral, TID, as needed for pain, # 90 tabs, 0 Refill(s) Start Date: 03/28/16 Stop Date: 04/27/16 Status: Ordered Klor-Con M20 oral tablet, extended release See Instructions, TAKE ONE TABLET BY MOUTH EVERY OTHER DAY, # 30 tabs, 3 Refill( s), eRx: [facility] #[id number], TAKE ONE TABLET BY MOUTH EVERY OTHER DAY Start Date: 10/18/15 Status: Ordered Metoprolol Tartrate 100 mg oral tablet See Instructions, TAKE ONE TABLET BY MOUTH TWICE A DAY, # 180 tabs, 3 Refill(s) , eRx: [facility] #[id number], TAKE ONE TABLET BY MOUTH TWICE A DAY Start Date: 07/19/15 Status: Ordered multivitamin Daily, 0 Refill(s) Start Date: 02/07/16 Status: Ordered omeprazole 40 mg oral delayed release capsule See Instructions, TAKE ONE CAPSULE BY MOUTH DAILY, # 30 caps, 4 Refill(s), Pharmacy: [facility] #[id number], TAKE ONE CAPSULE BY MOUTH DAILY Start Date: 03/22/16 Status: Ordered Promethazine DM 6.25 mg-15 mg/5 mL oral syrup 5 mL, Oral, q6hr, as needed for cough, # 120 mL, 0 Refill(s), Pharmacy: [facility] #[id number] Start Date: 03/28/16 Stop Date: 04/11/16 Status: Ordered Tessalon Perles 100 mg oral capsule 100 mg 1 caps, Oral, TID, X 10 days, # 30 caps, 0 Refill(s), Pharmacy: [facility] #[id number], 1 caps Oral TID,x10 days Start Date: 03/23/16 Stop Date: 04/02/16 Status: Ordered valsartan 80 mg oral tablet See Instructions, TAKE ONE TABLET BY MOUTH DAILY, # 90 tabs, eRx: [facility] #[id number], TAKE ONE TABLET BY MOUTH DAILY Start Date: 02/20/16 Status: Ordered Xarelto 20 mg oral tablet See Instructions, TAKE ONE TABLET BY MOUTH EVERY EVENING, # 30 tabs, 5 Refill(s) , eRx: [facility] #[id number], TAKE ONE TABLET BY MOUTH EVERY EVENING [...] Visit Note Author: Danna Harley DO Date: 03/28/16 Assessment/Plan Chronic pain syndrome Controlled substance agreement signed today, refill given, patient will return to clinic in 3 months or sooner with problems. Ordered: Office Visit Level 4 Est 44035 Cough We will go ahead and prescribe the patient some promethazine DM cough syrup to try as she continues to get over this illness, if she has any worsening symptoms or trouble breathing she should present to clinic or the emergency department. Ordered: Office Visit Level 4 Est 15034
--- OUTSIDE RECORDS SUMMARY | 2016-06-08 08:20 | XMS REPORT | Referral Summary ---
Author Organization Unknown Address Unknown Phone Unavailable Care Team Providers Care Paraffiner Name Role Phone Cameron Kirkland Primary Care Physician [phone] Encounter VC Date(s): 05/21/14 - 05/21/14 [facility], [place], Family [address] [place] [address] Discharge Diagnosis: Benign essential hypertension (disorder) Discharge Disposition: Home or Self Care Attending Physician: Walter Kirkland MD Admitting Physician: Walter Kirkland MD Vital Signs Most recent to 1 oldest [Reference Range]: Temperature Oral 36.5 degC [35.8-37.3 degC] (05/21/14 8:29 AM) Peripheral Pulse 69 bpm Rate [60-100 bpm] (05/21/14 8:29 AM) Respiratory Rate 14 br/min [14-20 br/min] (05/21/14 8:29 AM) Blood Pressure 162/72 mmHg [90-140/60-90 mmHg] *HI* (05/21/14 8:29 AM) Most recent to 1 oldest [Reference Range]: SpO2 96 % (05/21/14 8:29 AM) Problem List Condition Effective Dates Status [...] caps, 6 Refill(s), Pharmacy: [facility] #[id number] , 1 caps Oral Daily Start Date: 04/12/14 Status: Ordered Diovan 80 mg oral tablet 1 tabs, Oral, Daily, # 90 tabs, 3 Refill(s), 1 tabs Oral Daily,x90 days Start Date: 05/21/14 Stop Date: 05/16/15 Status: Ordered furosemide 20 mg oral tablet See Instructions, TAKE ONE TABLET BY MOUTH TWICE A DAY, # 60 tabs, 5 Refill(s), eRx: [facility] #[id number], TAKE ONE TABLET BY MOUTH TWICE A [...] tabs, 1 Refill(s), eRx: [facility] #[id number], TAKE ONE TABLET BY MOUTH EVERY DAY Special Instructions: TAKE ONE TABLET BY MOUTH EVERY DAY Start Date: 03/15/14 Status: Ordered Metoprolol Tartrate 50 mg oral tablet See Instructions, TAKE ONE TABLET BY MOUTH TWICE A DAY, # 60 tabs, 5 Refill(s), eRx: [facility] #[id number], TAKE ONE TABLET BY MOUTH TWICE A DAY Special Instructions: TAKE ONE TABLET BY MOUTH TWICE A DAY Start Date: 12/09/13 Status: Ordered niacin 1,500 mg, Oral, Bedtime (once a day), 0 Refill(s) Start Date: 09/07/13 Status: Ordered omeprazole 40 mg oral delayed release capsule See Instructions, TAKE ONE CAPSULE BY MOUTH ONCE A DAY, # 30 caps, 4 Refill(s), [facility] #[id number], TAKE ONE CAPSULE BY MOUTH ONCE A DAY Special Instructions: TAKE ONE CAPSULE BY MOUTH ONCE A DAY Start Date: 04/29/14 Status: Ordered PROzac 20 mg oral capsule See Instructions, TAKE ONE CAPSULE BY MOUTH EVERY DAY, # 90 caps, 2 Refill(s), [facility] #[id number], TAKE ONE CAPSULE BY MOUTH EVERY DAY [...] Visit Note Author: Walter Kirkland MD Date: 2/27/15 Assessment/Plan Benign essential hypertension (disorder) I am going to add Homero. I reviewed the most recent history regarding your kidneys and blood pressure. It looks like about a year ago we added meloxicam and that's when your trouble with your kidney started. We discussed making sure that you do not take ibuprofen Aleve or meloxicam. You agreed to that. I'm in a see back in a month and we'll check your renal status at that point. We'll recheck blood pressure at that point. Call if you're having any troubles with lightheadedness or dizziness. Orders: valsartan, 1 tabs, Oral, Daily, # 90 tabs, 3 Refill(s), Pharmacy: [facility] #[id number], 1 tabs Oral Daily,x90 days
--- OUTSIDE RECORDS SUMMARY | 2016-06-08 08:20 | XMS REPORT | Referral Summary ---
Author Author [facility], Family Medicine Organization [facility] Address Unknown Phone Unavailable Care Team Providers Care School Leader Name Role Phone Cameron Kirkland Primary Care Physician [phone] Encounter VC Date(s): 08/06/14 - 08/06/14 [facility], [address] [place] [address] Discharge Disposition: 01-Home or Self Care [...] Daily, # 60 tabs, 2 Refill(s), eRx: [facility] #[id number] , TAKE ONE TABLET BY MOUTH TWICE A DAY Start Date: 09/06/14 Status: Ordered hydrALAZINE 25 mg oral tablet See Instructions, TAKE ONE TABLET BY MOUTH THREE TIMES A DAY, # 90 tabs, eRx: [facility] #[id number], TAKE ONE TABLET BY MOUTH THREE TIMES A DAY Start Date: 01/13/15 Status: Ordered HYDROcodone-acetaminophen 7.5 mg-325 mg oral tablet 1 tabs, Oral, TID, as needed for pain, # 90 tabs, 0 Refill(s) Start Date: 01/20/15 Stop Date: 02/19/15 Status: Ordered Klor-Con M20 oral tablet, extended release 20 mEq 1 tabs, Oral, Every other day, # 30 tabs, 2 Refill(s), eRx: [facility] #[id number], TAKE ONE TABLET BY MOUTH DAILY Start Date: 09/06/14 Status: Ordered metoprolol tartrate 100 mg oral tablet 1 tabs, Oral, BID, # 180 tabs, 4 Refill(s), Pharmacy: [facility] #[id number] Start Date: 07/07/14 Status: Ordered omeprazole 40 mg oral delayed release capsule See Instructions, TAKE ONE CAPSULE BY MOUTH ONCE A DAY, # 30 caps, 11 Refill(s) , eRx: [facility] #[id number], TAKE ONE CAPSULE BY MOUTH ONCE A DAY Start Date: 10/04/14 Status: Ordered PROzac 20 mg oral capsule See Instructions, TAKE ONE CAPSULE BY MOUTH EVERY DAY, # 90 caps, eRx: [facility] #[id number], TAKE ONE CAPSULE BY MOUTH EVERY DAY Start Date: 02/15/15 Status: Ordered Xarelto 20 mg oral tablet 20 mg 1 tabs, Oral, qPM, # 30 tabs, 6 Refill(s), Pharmacy: [facility] # [id number], 1 tabs Oral qPM,x30 days Start Date: [...] 2008 Knee replacement - right 2009 Cardiac catheterization7 [...] qPM, # 30 tabs, 6 Refill(s), Pharmacy: [facility] #[id number], 1 tabs Oral qPM,x30 days
--- OUTSIDE RECORDS SUMMARY | 2016-06-08 08:20 | XMS REPORT | Referral Summary ---
Author Author [facility] Organization [facility] Address Unknown Phone Unavailable Care Team Providers Care Web Machine Tender Name Role Phone Cameron Kirkland Primary Care Physician [phone] Encounter VC Date(s): 10/27/14 - 10/27/14 [facility] [address] [place] [address] JOSEFINA Brown [id number] Discharge Diagnosis: Hypercholesteremia Discharge Diagnosis: Coronary heart [...] Daily, # 60 tabs, 2 Refill(s), eRx: [facility] #[id number] , TAKE ONE TABLET BY MOUTH TWICE A DAY Start Date: 09/06/14 Status: Ordered hydrALAZINE 25 mg oral tablet See Instructions, TAKE ONE TABLET BY MOUTH THREE TIMES A DAY, # 90 tabs, eRx: [facility] #[id number], TAKE ONE TABLET BY MOUTH THREE TIMES A DAY Start Date: 01/13/15 Status: Ordered HYDROcodone-acetaminophen 7.5 mg-325 mg oral tablet 1 tabs, Oral, TID, as needed for pain, # 90 tabs, 0 Refill(s) Start Date: 01/20/15 Stop Date: 02/19/15 Status: Ordered Klor-Con M20 oral tablet, extended release 20 mEq 1 tabs, Oral, Every other day, # 30 tabs, 2 Refill(s), eRx: [facility] #[id number], TAKE ONE TABLET BY MOUTH DAILY Start Date: 09/06/14 Status: Ordered metoprolol tartrate 100 mg oral tablet 1 tabs, Oral, BID, # 180 tabs, 4 Refill(s), Pharmacy: [facility] #[id number] Start Date: 07/07/14 Status: Ordered omeprazole 40 mg oral delayed release capsule See Instructions, TAKE ONE CAPSULE BY MOUTH ONCE A DAY, # 30 caps, 11 Refill(s) , eRx: [facility] #[id number], TAKE ONE CAPSULE BY MOUTH ONCE A DAY Start Date: 10/04/14 Status: Ordered PROzac 20 mg oral capsule See Instructions, TAKE ONE CAPSULE BY MOUTH EVERY DAY, # 90 caps, 1 Refill(s), eRx: [facility] #[id number], TAKE ONE CAPSULE BY MOUTH EVERY DAY Start Date: 10/26/14 Status: Ordered Xarelto 20 mg oral tablet 20 mg 1 tabs, Oral, qPM, # 30 tabs, 6 Refill(s), Pharmacy: [facility] # [id number], 1 tabs Oral qPM,x30 days Start Date: [...] Daily, # 60 tabs, 2 Refill(s), eRx: [facility] #[id number], TAKE ONE TABLET BY MOUTH TWICE A DAY potassium chloride, 20 mEq 1 tabs, Oral, Every other day, # 30 tabs, 2 Refill( s), eRx: [facility] #[id number], TAKE ONE TABLET BY MOUTH DAILY
[2016-06-08 08:33] VITALS: BP 165/68; PULSE 60; RESP 16; TEMP 98; O2SAT 98; Ht 147.3 cm; Wt 69.4 kg
[2016-06-08 08:50] VITALS: BP 146/67
--- NOTE | 2016-06-08 09:46 | ANESPREOP ---
Anesthesia Record Date and Time DATE: 06/08/16 TIME: 09:43 Proposed Surgical Procedure EGD WITH DIL NPO since: 1999 Allergies: Coded Allergies: cyclobenzaprine (Verified Allergy, Severe, HALLUCINATIONS, 06/08/16) Sulfa (Sulfonamide Antibiotics) (Verified Allergy, Mild, itch and rash, ) Ht/Wt/BMI Height: 4 ' 10.00 " Weight: 69.400 kg BMI: 32.0 kg/m2 Vital Signs Date Time Temp Pulse Resp B/P Pulse Ox O2 Delivery O2 Flow Rate FiO2 06/08/16 08:50 146/67 06/08/16 08:33 98.0 60 16 98 Room Air Medications Inpatient Medications Current Medications Medications (Trade) Dose Ordered Sig/Jeff Start Time Stop Time Status Last Admin Dose Admin Lactated Ringer's (Lactated Ringers) 1,000 ml @ 30 mls/hr Q24H 06/08/16 07:00 06/08/16 09:40 30 MLS/HR Aspirin (Aspirin) 81 Mg Tablet, 81 MG PO HS, (Reported) Last Taken: on 06/01/16 Calcium (Calcium) 500 Mg Tablet, 500 MG PO DAILY, ( Reported) Last Taken: on 06/07/16 0800 Fluoxetine (Prozac) 20 Mg Capsule, 20 MG PO DAILY, (Reported) Last Taken: on 06/07/16 0800 Furosemide (Furosemide) 20 Mg Tablet, 20 MG PO DAILY, (Reported) Last Taken: on 06/07/16 0800 Hydralazine HCl (Hydralazine HCl) 25 Mg Tablet , 25 MG PO TID, (Reported) Last Taken: on 06/07/16 1900 Hydrocodone/Acetaminophen (Hydrocodon- Acetaminoph 7.5-325) 1 Each Tablet, 1 TAB PO Q8H PRN for PAIN, (Reported) Metoprolol Tartrate (Metoprolol Tartrate) 100 Mg Tablet, 100 MG PO BID, ( Reported) Last Taken: on 06/08/16 0600 Multivitamin W/Iron, Minerals (Multivitamins with Iron) 1 Each Tab.chew, 1 TAB PO DAILY, (Reported) Last Taken: on 06/07/16 0800 Omeprazole (Omeprazole) 40 Mg Capsule.dr, 40 MG PO DAILY, (Reported) Last Taken: on 06/08/16 0600 Potassium Chloride (Klor-Con M20) 20 Meq Tablet , 20 MEQ PO QOD, (Reported) Last Taken: on 06/07/16 0800 Rivaroxaban (Xarelto) 20 Mg Tablet, 20 MG PO HS , (Reported) Last Taken: on 06/05/16 Valsartan (Valsartan) 80 Mg Tablet, 1 TAB PO DAILY, (Reported) Last Taken: on 06/07/16 0800 Currently on Beta Stefanie: No Medical/Surgical History Anesthesia PMH: Reports: *Dyspnea (UPON EXERTION), *Hypertension (TAKES MEDS), Arthritis (RA), CHF (PER HISTORY), Clotting Problems (history of DVT. Patient anticoagulated), Deep Vein Thrombosis (MAY 2011 FROM GROIN TO KNEE AND ALSO IN LUNG), Obesity, Pneumonia (LAST TIME IN THE LATE 1970S), Reflux (PER H&P, PT DENIES) Smoking Status: Former smoker (quit 50 years ago) Has pt. smoked today?: No Use Chewing Tobacco?: No Second Hand Exposure: No Substance Use Type: does not use Alcohol Intake: none HX of Last Menstrual Period: 1974 Past Surgical History Orthopedic Surgeries: Yes - HARVINDER CARPAL TUNNEL, BACK SRG,R TKA,TRIGGER FINGER X5 Abdominal Surgeries: Yes - APPY Genitourinary Surgeries: No Cardiac Surgeries: No Endocrine Surgeries: No Reproductive Surgeries: Yes - HYST Neurological Surgeries: No Ear Surgeries: No Nose Surgeries: No Throat Surgeries: Yes - TONSILLECTOMY Other Surgeries: Yes - TEETH REMOVAL,COLONOSCOPY,EGD Anesthesia Adverse Reactions: FOUND none Family Hx of Anesthesia Advers: none Hx of Motion Sickness: No Physical Exam Respiratory: Bilat breath sounds equal, Lungs clear Cardiovascular: FOUND Regular rate, rhythm Airway Assessment Mallampati Score: II TMD: 3 Fingerbreadths Neck Extension: Fair Teeth: Upper Dentures, Lower Dentures Overall Assessment: No Airway Concerns ASA: 3 Plan Anesthesia Plan: TIVA, GETA Discussion Discussed risks/options/alternatives of anesthesia and questions answered. Patient consents. Nursing pain assessment noted. Present: Family Member Attestation Statement Prior to the delivery of any anesthetic medication, I examined the patient, developed the plan, obtained the patient's consent and discussed the risk and benefits of the procedure with the patient/guardian. MICHELLE BAINS CRNA Jun 08, 2016 09:46
[2016-06-08 11:19] VITALS: BP 114/54; PULSE 70; RESP 16; TEMP 96.9; O2SAT 97
[2016-06-08 11:29] VITALS: BP 144/64; PULSE 66; RESP 16; O2SAT 97
--- NOTE | 2016-06-08 11:31 | ANESPO ---
Post-Op Note Date 06/08/16 Time: 11:29 Status Pt Participated in Evaluation: Pt participated in person Vital Signs Date Time Temp Pulse Resp B/P Pulse Ox O2 Delivery O2 Flow Rate FiO2 06/08/16 11:19 96.9 70 16 114/54 97 Room Air Respiratory Function: Airway patent, Regular respirations Cardiovascular Function: Regular pulse Mental Status: Alert/oriented Pain Level Intensity: 0 Unable to Assess Pain Due To: Pt Sleeping Hydration: Taking po fluids, IV infusing Complications during Recovery None apparent Post-Anesthesia Notes pt. hunter. well Follow-Up Instructions Instructions Per Surgeon Additional Information none MT TRAN CRNA Jun 08, 2016 11:31
[2016-06-08 11:40] VITALS: BP 137/68; PULSE 65; RESP 16; O2SAT 96
[2016-06-08 11:49] VITALS: BP 138/63; PULSE 62; RESP 16; O2SAT 98
--- NOTE | 2016-06-08 14:51 | OPNOTEF ---
DATE OF SERVICE 06/08/2016 SURGEON Triston Chaney MD PREOPERATIVE DIAGNOSIS Personal history for Schatzki's ring, history for recurrent dysphagia. POSTOPERATIVE DIAGNOSIS Personal history for Schatzki's ring, history for recurrent dysphagia, prepyloric gastric polyp, Schatzki's ring. PROCEDURE Esophagogastroduodenoscopy with biopsies from distal esophagus, sequential balloon dilatation of distal esophagus up to #50 American, gastric polypectomy via snare polypectomy technique. ANESTHESIA TIVA BRIEF HISTORY/INDICATIONS Mrs. Cutler is a 76-year-old female who presents today to undergo an EGD as a result of her history for recurrent dysphagia. The patient has had a Schatzki's ring in the past requiring prior dilatation. For completeness please refer to notes included in the patient's chart. DESCRIPTION OF PROCEDURE After informed consent was obtained, the patient was brought to the endoscopy suite and placed on the table in left lateral decubitus position. The patient subsequently underwent total intravenous anesthesia by the nurse bread oven operator per my request. Next, a formal time out was then completed. An Olympus gastroscope was inserted into the oral hypopharynx and subsequently the esophagus under direct visualization. The gastroscope was advanced through the esophagus, stomach, pylorus, duodenal bulb, into the second portion of the duodenum. The scope was slowly withdrawn. First and second portions of the duodenum were without noted abnormalities. The scope was then drawn back into the prepyloric region. One could then see a pedunculated-like polyp structure that actually prolapsed through the pylorus and occupied the majority of the pyloric lumen. This polyp-like structure was removed endoscopically in its entirety via a snare polypectomy technique and suctioned into a polyp trap to be submitted for pathologic evaluation. A J-maneuver was then performed. Cardia and fundus were within normal limits. Endoscopically, there was no evidence for hiatal hernia. Scope was allowed to straighten and slowly withdrawn. The remaining corpus of the stomach was well visualized and again without noted abnormalities. Scope was withdrawn back to the level of the diaphragm. At the level of the diaphragm, patient was found to have some narrowing of the distal esophagus. There did appear to be a small Schatzki's ring. The ring-like structure was biopsied via cold biopsy technique. Next the gastroscope was withdrawn back up into the cervical esophagus. No additional mucosal abnormalities were noted. Gastroscope was then readvanced back to the GERALDINE junction. A balloon was placed at the GERALDINE junction and sequentially dilated up to a #50 American. This did result in a small mucosal tear. There was no evidence for perforation. Balloon was then deflated and withdrawn back into the gastroscope. Gastroscope was then removed. The patient tolerated the procedure without difficulty and was sent back to the preop area in stable condition. We will await the biopsy results from today's esophagogastroduodenoscopy and will proceed accordingly with further recommendations thereafter. AZRA
== END | disposition home or self-care (01) ==
LOC: NSC 08:13
PROVIDERS: ATTEND Surgery
DX: K22.2 Esophageal obstruction (principal); K31.7 Polyp of stomach and duodenum; K21.0 Gastro-esophageal reflux disease with esophagitis; R13.10 Dysphagia, unspecified; Z87.11 Personal history of peptic ulcer disease; I10 Essential (primary) hypertension; E78.1 Pure hyperglyceridemia; F32.9 Major depressive disorder, single episode, unspecified; Z86.718 Personal history of other venous thrombosis and embolism; Z79.899 Other long term (current) drug therapy
CPT/HCPCS: 43239; 43249; 43251; J7120; 88305